=== PATIENT | male | born 1930 | race Caucasian/White ===

== ENCOUNTER 2018-02-22 14:10 | Inpatient (IN) | payer BC, OTHER ==
[2018-02-22 14:54] LABS: WHITE BLOOD COUNT 21.2 10^3/ul (4.8-10.8)
[2018-02-22 14:55] LABS: ABNORMAL IP MESSAGE 1; HEMATOCRIT 44.2 % (42.0-52.0); HEMOGLOBIN 14.7 g/dl (14.0-18.0); MEAN CORPUSCULAR HEMOGLOBIN 33.3 pg (29.0-33.0); MEAN CORPUSCULAR HGB CONC 33.3 g/dl (32.0-37.0); POSITIVE DIFF @See below; RED BLOOD COUNT 4.42 10^6/ul (4.70-6.10); RED CELL DISTRIBUTION WIDTH 13.3 % (11.5-14.5)
[2018-02-22 14:56] LABS: MEAN PLATELET VOLUME 11.2 fl (7.4-10.4); PLATELET COUNT 47 10^3/UL (140-415)
[2018-02-22 14:57] LABS: ADD MAN DIFF? YES
[2018-02-22] MEDS: SOD CHLORIDE 0.9% 1,000 ML IV ×2 (14:58→21:00)
[2018-02-22] MEDS: PANTOPRAZOLE IV 80 MG in SOD CHLORIDE 0.9% 100 ML IV (14:58)
[2018-02-22] MEDS: PANTOPRAZOLE IV 80 MG in SOD CHLORIDE 0.9% 100 ML IVPB (14:58)
[2018-02-22 15:11] LABS: ALANINE AMINOTRANSFERASE 16 IU/L (13-69); ALBUMIN 2.9 g/dl (3.3-4.9); ALBUMIN/GLOBULIN RATIO 1.26; ALKALINE PHOSPHATASE 36 IU/L (42-121); ANION GAP 14 (5-13); ASPARTATE AMINO TRANSFERASE 25 IU/L (15-46); BILIRUBIN,INDIRECT 1.4 mg/dl (0-1.1); BILIRUBIN,TOTAL 1.4 mg/dl (0.2-1.3); BLOOD UREA NITROGEN 17 mg/dl (7-20); CALCIUM 7.7 mg/dl (8.4-10.2); CARBON DIOXIDE 20 mmol/L (21-31); CHLORIDE 101 mmol/L (97-110); CREATININE 0.87 mg/dl (0.61-1.24); GLUCOSE 140 mg/dl (70-220); LIPASE 36 U/L (23-300); POTASSIUM 3.8 mmol/L (3.5-5.1); SODIUM 135 mmol/L (135-144); TOTAL PROTEIN 5.2 g/dl (6.1-8.1)
[2018-02-22 15:13] LABS: INR 1.15; PARTIAL THROMBOPLASTIN TIME 25.2 Sec (23.0-35.0); PROTIME 14.9 Sec (11.9-14.9); PT RATIO 1.2
[2018-02-22 15:23] LABS: TROPONIN-I < 0.012 ng/ml (0.000-0.120)
[2018-02-22 15:29] LABS: BAND NEUTROPHILS #M 4.6 10^3/ul (0.0-0.6); BAND NEUTROPHILS % (M) 22 % (0-4); LYMPHOCYTES #M 0.8 10^3/ul (0.8-2.9); LYMPHOCYTES % (M) 4 % (15-51); MONOCYTE #M 1.2 10^3/ul (0.3-0.9); MONOCYTES % (M) 6 % (0-11); MYELOCYTES #M 0.2 10^3/ul (0.0-0.0); MYELOCYTES % (M) 1 % (0-0); PLATELET ESTIMATE DECREASED; SEG NEUT #M 15.2 10^3/ul (1.6-7.5); SEGMENTED NEUTROPHILS (M) % 67 % (39-77); SMUDGE%M 51 % (0-0)
[2018-02-22] MEDS: SODIUM CHLORIDE 0.9% 1L BAG IV* (16:41)
[2018-02-22] MEDS: CEFEPIME 2GM/50 ML (PMX) 50 ML IVPB (16:42)
[2018-02-22] MEDS: VANCOMYCIN 1 GM (PMX) 250 ML IVPB (17:06)
[2018-02-22] MEDS ORDERED: ACETAMINOPHEN 325 MG TAB PO (18:00)
[2018-02-22] MEDS ORDERED: ONDANSETRON 4 MG INJ IV ×2 (18:00→20:00)
[2018-02-22] MEDS ORDERED: NACL 0.9% 3 ML SYG IV (20:00)
[2018-02-22] MEDS ORDERED: morphine 2 MG INJ IV (20:00)
[2018-02-22] MEDS ORDERED: VANCOMYCIN IV PER PHARMACY XX (21:00)
[2018-02-22] MEDS: MEROPENEM 500MG/50 ML (PMX) 50 ML IVPB (22:52)
[2018-02-22] MEDS: D5W-0.45 NACL + KCL 20 MEQ 1,000 ML IV (23:24)
[2018-02-23] MEDS: D5W-0.45 NACL + KCL 20 MEQ 1,000 ML IV ×2 (05:52→17:28)
[2018-02-23 06:53] LABS: WHITE BLOOD COUNT 28.1 10^3/ul (4.8-10.8)
[2018-02-23 06:53] LABS: ABNORMAL IP MESSAGE 1; HEMATOCRIT 35.7 % (42.0-52.0); MEAN CORPUSCULAR HEMOGLOBIN 33.6 pg (29.0-33.0); MEAN CORPUSCULAR HGB CONC 33.6 g/dl (32.0-37.0); MEAN PLATELET VOLUME 11.4 fl (7.4-10.4); POSITIVE DIFF @See below; RED BLOOD COUNT 3.57 10^6/ul (4.70-6.10); RED CELL DISTRIBUTION WIDTH 13.6 % (11.5-14.5)
[2018-02-23 07:04] LABS: PLATELET COUNT 28 10^3/UL (140-415)
[2018-02-23 07:05] LABS: ADD MAN DIFF? YES
[2018-02-23 07:12] LABS: ALANINE AMINOTRANSFERASE 17 IU/L (13-69); ALBUMIN 2.6 g/dl (3.3-4.9); ALBUMIN/GLOBULIN RATIO 1.13; ALKALINE PHOSPHATASE 31 IU/L (42-121); ANION GAP 7 (5-13); ASPARTATE AMINO TRANSFERASE 23 IU/L (15-46); BLOOD UREA NITROGEN 18 mg/dl (7-20); CALCIUM 7.4 mg/dl (8.4-10.2); CARBON DIOXIDE 22 mmol/L (21-31); CHLORIDE 107 mmol/L (97-110); CREATININE 0.83 mg/dl (0.61-1.24); GLUCOSE 127 mg/dl (70-220); POTASSIUM 3.8 mmol/L (3.5-5.1); SODIUM 136 mmol/L (135-144); TOTAL PROTEIN 4.9 g/dl (6.1-8.1)
[2018-02-23 08:20] LABS: BAND NEUTROPHILS #M 4.2 10^3/ul (0.0-0.6); BAND NEUTROPHILS % (M) 15 % (0-4); LYMPHOCYTES #M 1.4 10^3/ul (0.8-2.9); LYMPHOCYTES % (M) 5 % (15-51); METAMYELOCYTES #M 0.5 10^3/ul (0.0-0.0); METAMYELOCYTES %M 2 % (0-0); MONOCYTE #M 2.5 10^3/ul (0.3-0.9); MONOCYTES % (M) 9 % (0-11); PLATELET ESTIMATE SIG DECREASED; POIKILOCYTOSIS 2+ (0-0); POLYCHROMASIA 1+ (0-0); REACTIVE LYMPHOCYTES #M 0.5 10^3/ul (0.0-0.0); REACTIVE LYMPHOCYTES% (M) 2 % (0-0); SEGMENTED NEUTROPHILS (M) % 67 % (39-77); SMUDGE%M 36 % (0-0); SPHEROCYTES 1+ (0-0)
[2018-02-23] MEDS: SOD CHLORIDE 0.9% 100 ML (17:16)
[2018-02-23] MEDS: IOHEXOL 300MG/ML 30 ML BTL (17:16)
[2018-02-23] MEDS: PANTOPRAZOLE 40 MG INJ IV (17:26)
[2018-02-23] MEDS: VANCOMYCIN 1 GM 250 ML IVPB (17:27)
[2018-02-23] MEDS: MEROPENEM 1 GM/50ML(PMX) 50 ML IVPB (20:48)
[2018-02-24] MEDS: D5W-0.45 NACL + KCL 20 MEQ 1,000 ML IV ×3 (05:28→23:48)
[2018-02-24] MEDS: PANTOPRAZOLE 40 MG INJ IV (05:28)
[2018-02-24 05:31] LABS: WHITE BLOOD COUNT 31.6 10^3/ul (4.8-10.8)
[2018-02-24 05:31] LABS: ABNORMAL IP MESSAGE 1; HEMATOCRIT 34.1 % (42.0-52.0); HEMOGLOBIN 11.5 g/dl (14.0-18.0); MEAN CORPUSCULAR HGB CONC 33.7 g/dl (32.0-37.0); MEAN CORPUSCULAR VOLUME 100.9 fl (82.0-101.0); PLATELET COUNT 63 10^3/UL (140-415); POSITIVE DIFF @See below; RED BLOOD COUNT 3.38 10^6/ul (4.70-6.10); RED CELL DISTRIBUTION WIDTH 13.5 % (11.5-14.5)
[2018-02-24 05:42] LABS: ADD MAN DIFF? YES
[2018-02-24 06:13] LABS: ANION GAP 11 (5-13); BLOOD UREA NITROGEN 16 mg/dl (7-20); CALCIUM 8.5 mg/dl (8.4-10.2); CARBON DIOXIDE 23 mmol/L (21-31); CHLORIDE 105 mmol/L (97-110); CREATININE 0.74 mg/dl (0.61-1.24); GLUCOSE 131 mg/dl (70-220); POTASSIUM 3.5 mmol/L (3.5-5.1); SODIUM 139 mmol/L (135-144)
[2018-02-24 06:34] LABS: CARCINOEMBRYONIC ANTIGEN 3.5 ng/ml (0.0-5.0)
[2018-02-24] MEDS ORDERED: NA BICARBONATE 8.4% 50 ML SYG (07:00)
[2018-02-24 07:22] LABS: BAND NEUTROPHILS #M 4.7 10^3/ul (0.0-0.6); BAND NEUTROPHILS % (M) 15 % (0-4); LYMPHOCYTES #M 0.3 10^3/ul (0.8-2.9); LYMPHOCYTES % (M) 1 % (15-51); MONOCYTE #M 2.2 10^3/ul (0.3-0.9); MONOCYTES % (M) 7 % (0-11); PLATELET ESTIMATE SIG DECREASED; REACTIVE LYMPHOCYTES #M 0.3 10^3/ul (0.0-0.0); REACTIVE LYMPHOCYTES% (M) 1 % (0-0); SEG NEUT #M 25.5 10^3/ul (1.6-7.5); SEGMENTED NEUTROPHILS (M) % 76 % (39-77); SMUDGE%M 2 % (0-0); SPHEROCYTES 1+ (0-0)
[2018-02-24] MEDS: CIPROFLOXACIN 400MG/D5W 200 ML (08:33)
[2018-02-24] MEDS ORDERED: MIDAZOLAM 1 MG/ML 2 ML INJ (08:36)
[2018-02-24] MEDS ORDERED: PHENYLephrine (100 MCG/ML) 5ML SYG ×3 (08:46→10:17)
[2018-02-24] MEDS ORDERED: PHENYLephrine 10 MG INJ ×2 (08:53→10:17)
[2018-02-24] MEDS ORDERED: GELATIN SIZE 100 SPONGE (11:03)
[2018-02-24 11:30] LABS: TYPE AND SCREEN 1
[2018-02-24] MEDS: HEMOSTATIC MATRIX SYG ZFS (11:30)
[2018-02-24 11:52] LABS: ADD MAN DIFF? NO
[2018-02-24] MEDS ORDERED: SOD CHLORIDE 0.9% 1,000 ML IV (11:55)
[2018-02-24 12:00] LABS: WHITE BLOOD COUNT 17.7 10^3/ul (4.8-10.8)
[2018-02-24 12:00] LABS: ABNORMAL IP MESSAGE 1; BASOPHILS % 0.1 % (0.0-2.0); HEMATOCRIT 31.2 % (42.0-52.0); HEMOGLOBIN 10.6 g/dl (14.0-18.0); LYMPHOCYTES # 0.7 10^3/ul (0.8-2.9); LYMPHOCYTES % 3.9 % (15.0-51.0); MEAN CORPUSCULAR HEMOGLOBIN 31.9 pg (29.0-33.0); MEAN PLATELET VOLUME 9.8 fl (7.4-10.4); MONOCYTE # 2.5 10^3/ul (0.3-0.9); MONOCYTES % 14.3 % (0.0-11.0); NEUTROPHIL # 14.2 10^3/ul (1.6-7.5); NEUTROPHILS % 80.1 % (39.0-77.0); PLATELET COUNT 73 10^3/UL (140-415); POSITIVE DIFF @See below; RED BLOOD COUNT 3.32 10^6/ul (4.70-6.10); RED CELL DISTRIBUTION WIDTH 15.2 % (11.5-14.5)
[2018-02-24] MEDS ORDERED: metroNIDAZOLE 500 MG/NS (PMX) 100 ML IVPB ×2 (12:00→12:12)
[2018-02-24] MEDS ORDERED: CIPROFLOXACIN 400MG/D5W 200 ML IVPB (12:00)
[2018-02-24] MEDS ORDERED: ONDANSETRON 4 MG INJ IV ×2 (12:00→12:30)
[2018-02-24 12:12] LABS: ALANINE AMINOTRANSFERASE 35 IU/L (13-69); ALBUMIN 1.7 g/dl (3.3-4.9); ALKALINE PHOSPHATASE 31 IU/L (42-121); ANION GAP 5 (5-13); ASPARTATE AMINO TRANSFERASE 33 IU/L (15-46); BILIRUBIN,INDIRECT 0.5 mg/dl (0-1.1); BILIRUBIN,TOTAL 0.5 mg/dl (0.2-1.3); BLOOD UREA NITROGEN 14 mg/dl (7-20); CALCIUM 6.6 mg/dl (8.4-10.2); CARBON DIOXIDE 25 mmol/L (21-31); CHLORIDE 109 mmol/L (97-110); CREATININE 0.53 mg/dl (0.61-1.24); GLUCOSE 184 mg/dl (70-220); POTASSIUM 3.1 mmol/L (3.5-5.1); SODIUM 139 mmol/L (135-144)
[2018-02-24] MEDS ORDERED: LIDOCAINE 2% (SDV) 5 ML INJ (12:12)
[2018-02-24] MEDS ORDERED: ROCURONIUM 50 MG INJ (12:12)
[2018-02-24] MEDS ORDERED: ETOMIDATE 20 MG INJ (12:12)
[2018-02-24 12:16] LABS: INR 1.75; PROTIME 20.8 Sec (11.9-14.9); PT RATIO 1.6
[2018-02-24] MEDS ORDERED: LORAZEPAM 2 MG INJ IV (12:30)
[2018-02-24] MEDS ORDERED: morphine (1 MG/ML) 10ML SYRINGE IV ×2 (12:30)
[2018-02-24] MEDS ORDERED: DIPHENHYDRAMINE 50 MG INJ IV (12:30)
[2018-02-24] MEDS ORDERED: MIDAZOLAM 1 MG/ML 2 ML INJ IV (12:30)
[2018-02-24] MEDS ORDERED: MEPERIDINE 25 MG INJ IV (12:30)
[2018-02-24] MEDS: MEROPENEM 1 GM/50ML(PMX) 50 ML IVPB ×2 (15:20→22:06)
[2018-02-24] MEDS: PROPOFOL 100 ML IV (15:28)
[2018-02-24] MEDS: VANCOMYCIN 1 GM 250 ML IVPB (16:30)
[2018-02-24] MEDS: morphine 2 MG INJ IV (17:40)
[2018-02-24 19:11] LABS: HEMATOCRIT 31.7 % (42.0-52.0); HEMOGLOBIN 11.1 g/dl (14.0-18.0)
[2018-02-24] MEDS: SOD CHLORIDE 0.9% 1,000 ML IV ×2 (19:14→20:15)
[2018-02-24 22:22] LABS: ANION GAP 9 (5-13); BLOOD UREA NITROGEN 15 mg/dl (7-20); CALCIUM 6.9 mg/dl (8.4-10.2); CARBON DIOXIDE 18 mmol/L (21-31); CHLORIDE 113 mmol/L (97-110); CREATININE 0.78 mg/dl (0.61-1.24); GLUCOSE 102 mg/dl (70-220); POTASSIUM 3.3 mmol/L (3.5-5.1); SODIUM 140 mmol/L (135-144)
[2018-02-24 23:04] LABS: AADO2 Arterial 142.1 mmHg (7.0-24.0); Arterial Base Excess 0.7 mmol/L (-3.0-3); Arterial Blood Gas Oxygen Sat 97.3 mmHG (95.0-100.0); Arterial COHb 1.1 % (0.0-3.0); Arterial Fraction of Oxyhgb 95.9 % (93.0-99.0); Arterial HCO3 20.6 mmol/L (22.0-26.0); Arterial MetHb 0.3 % (0.0-1.5); Arterial Total Hemglobin 12.3 g/dl (12.0-18.0); Arterial pCO2 21.6 mmhg (35-45); MODE VENT - AC; Site A-Line
[2018-02-24 23:10] LABS: IMMEDIATE SPIN CROSSMATCH 1 7
[2018-02-24] MEDS: POTASSIUM CHLORIDE 100 ML IVPB (23:59)
[2018-02-25] MEDS ORDERED: LORAZEPAM 2 MG INJ IM
[2018-02-25] MEDS: NORepinephrine 8MG/250 ML (PMX 250 ML IV (00:01)
[2018-02-25] MEDS: FENTAnyl (DRIP) 1000 mcg/100mL 100 ML IV (00:07)
[2018-02-25] MEDS: ACETAMINOPHEN 650MG/20.3ML CUP NGT (00:30)
[2018-02-25 01:26] LABS: ADD UMIC YES; UR ASCORBIC ACID NEGATIVE (NEGATIVE); UR BACTERIA FEW /HPF (NONE SEEN); UR BILIRUBIN (Dip) NEGATIVE (NEGATIVE); UR BLOOD (Dip) 2+ mg/dL (NEGATIVE); UR CLARITY CLOUDY (CLEAR); UR COLOR AMBER (YELLOW); UR GLUCOSE (Dip) 1+ mg/dL (NEGATIVE); UR KETONES (Dip) TRACE mg/dL (NEGATIVE); UR LEUKOCYTE ESTERASE (Dip) NEGATIVE Leu/ul (NEGATIVE); UR MUCUS FEW /HPF (NONE SEEN); UR NITRITE (Dip) NEGATIVE (NEGATIVE); UR RBC 20 /HPF (0-5); UR SPECIFIC GRAVITY (Dip) 1.024 (1.003-1.030); UR TOTAL PROTEIN (Dip) 1+ mg/dl (NEGATIVE); UR UROBILINOGEN (Dip) 2+ mg/dL (NEGATIVE); UR WBC 16 /HPF (0-5)
[2018-02-25 01:53] LABS: ADD MAN DIFF? NO
[2018-02-25 01:58] LABS: WHITE BLOOD COUNT 13.9 10^3/ul (4.8-10.8)
[2018-02-25 01:58] LABS: ABNORMAL IP MESSAGE 1; BASOPHILS % 0.1 % (0.0-2.0); HEMATOCRIT 34.6 % (42.0-52.0); LYMPHOCYTES # 0.9 10^3/ul (0.8-2.9); LYMPHOCYTES % 6.3 % (15.0-51.0); MEAN CORPUSCULAR HEMOGLOBIN 31.5 pg (29.0-33.0); MEAN CORPUSCULAR HGB CONC 34.7 g/dl (32.0-37.0); MEAN CORPUSCULAR VOLUME 90.8 fl (82.0-101.0); MEAN PLATELET VOLUME 10.6 fl (7.4-10.4); MONOCYTE # 1.9 10^3/ul (0.3-0.9); MONOCYTES % 13.3 % (0.0-11.0); NEUTROPHILS % 79.4 % (39.0-77.0); PLATELET COUNT 60 10^3/UL (140-415); POSITIVE DIFF @See below; RED BLOOD COUNT 3.81 10^6/ul (4.70-6.10); RED CELL DISTRIBUTION WIDTH 15.9 % (11.5-14.5)
[2018-02-25] MEDS: LEVETIRACETAM 1000 MG (PMX) 100 ML IVPB (02:36)
[2018-02-25] MEDS: PROPOFOL 100 ML IV ×2 (03:00→16:46)
[2018-02-25] MEDS: POTASSIUM CHLORIDE 100 ML IVPB (03:14)
[2018-02-25 04:15] LABS: PRETRANSFUSION BILIRUBIN 1.2 mg/dl
[2018-02-25 04:15] LABS: POST-TRANSFUSION BILIRUBIN 1.2 mg/dl
[2018-02-25 05:08] LABS: ADD MAN DIFF? NO
[2018-02-25 05:10] LABS: WHITE BLOOD COUNT 15.9 10^3/ul (4.8-10.8)
[2018-02-25 05:10] LABS: ABNORMAL IP MESSAGE 1; BASOPHILS % 0.2 % (0.0-2.0); HEMATOCRIT 34.8 % (42.0-52.0); HEMOGLOBIN 12.1 g/dl (14.0-18.0); LYMPHOCYTES # 1.1 10^3/ul (0.8-2.9); LYMPHOCYTES % 6.6 % (15.0-51.0); MEAN CORPUSCULAR HEMOGLOBIN 31.5 pg (29.0-33.0); MEAN CORPUSCULAR HGB CONC 34.8 g/dl (32.0-37.0); MEAN CORPUSCULAR VOLUME 90.6 fl (82.0-101.0); MEAN PLATELET VOLUME 9.9 fl (7.4-10.4); MONOCYTE # 2.1 10^3/ul (0.3-0.9); MONOCYTES % 13.3 % (0.0-11.0); NEUTROPHIL # 12.6 10^3/ul (1.6-7.5); NEUTROPHILS % 78.8 % (39.0-77.0); NUCLEATED RED BLOOD CELLS% 0.1 /100WBC (0.0-0.0); PLATELET COUNT 49 10^3/UL (140-415); POSITIVE DIFF @See below; RED BLOOD COUNT 3.84 10^6/ul (4.70-6.10)
[2018-02-25 05:34] LABS: INR 1.55; PROTIME 18.9 Sec (11.9-14.9); PT RATIO 1.5
[2018-02-25 05:52] LABS: ALANINE AMINOTRANSFERASE 30 IU/L (13-69); ALBUMIN 1.8 g/dl (3.3-4.9); ALKALINE PHOSPHATASE 32 IU/L (42-121); ANION GAP 6 (5-13); ASPARTATE AMINO TRANSFERASE 41 IU/L (15-46); BILIRUBIN,INDIRECT 1.3 mg/dl (0-1.1); BILIRUBIN,TOTAL 1.3 mg/dl (0.2-1.3); BLOOD UREA NITROGEN 16 mg/dl (7-20); CALCIUM 6.8 mg/dl (8.4-10.2); CARBON DIOXIDE 19 mmol/L (21-31); CHLORIDE 115 mmol/L (97-110); CREATININE 0.86 mg/dl (0.61-1.24); GLUCOSE 120 mg/dl (70-220); POTASSIUM 4.1 mmol/L (3.5-5.1); SODIUM 140 mmol/L (135-144); TOTAL PROTEIN 3.6 g/dl (6.1-8.1)
[2018-02-25] MEDS: D5W-0.45 NACL + KCL 20 MEQ 1,000 ML IV ×2 (07:41→20:51)
[2018-02-25 09:19] LABS: AADO2 Arterial 135.2 mmHg (7.0-24.0); Arterial Blood Gas Oxygen Sat 96.7 mmHG (95.0-100.0); Arterial COHb 0.6 % (0.0-3.0); Arterial Fraction of Oxyhgb 95.9 % (93.0-99.0); Arterial HCO3 19.7 mmol/L (22.0-26.0); Arterial MetHb 0.2 % (0.0-1.5); Arterial Total Hemglobin 12.7 g/dl (12.0-18.0); Arterial pCO2 25.7 mmhg (35-45); MODE VENT - AC; Site A-Line
[2018-02-25] MEDS: FAMOTIDINE 20 MG INJ IV (09:38)
[2018-02-25] MEDS: MEROPENEM 1 GM/50ML(PMX) 50 ML IVPB (09:38)
[2018-02-25] MEDS: LEVETIRACETAM 500 MG (PMX) 100 ML IVPB ×2 (12:44→22:31)
[2018-02-25] MEDS: ALBUMIN HUMAN 25% 50 ML IV ×2 (13:09→18:39)
[2018-02-25] MEDS: PIPER-TAZO 3.375 GM IV (PMX) 100 ML IVPB ×2 (14:38→21:46)
[2018-02-25 15:32] LABS: VANCOMYCIN,TROUGH 7.4 ug/ml (10.0-20.0)
[2018-02-25] MEDS: VANCOMYCIN 1 GM 250 ML IVPB (15:40)
[2018-02-25] MEDS: LORAZEPAM 2 MG INJ IV ×2 (18:39→22:31)
[2018-02-25 20:41] LABS: WHITE BLOOD COUNT 15.2 10^3/ul (4.8-10.8)
[2018-02-25 20:41] LABS: ABNORMAL IP MESSAGE 1; HEMATOCRIT 28.7 % (42.0-52.0); HEMOGLOBIN 9.9 g/dl (14.0-18.0); MEAN CORPUSCULAR HEMOGLOBIN 31.9 pg (29.0-33.0); MEAN CORPUSCULAR HGB CONC 34.5 g/dl (32.0-37.0); MEAN CORPUSCULAR VOLUME 92.6 fl (82.0-101.0); MEAN PLATELET VOLUME 11.7 fl (7.4-10.4); PLATELET COUNT 32 10^3/UL (140-415); POSITIVE DIFF @See below; RED CELL DISTRIBUTION WIDTH 16.4 % (11.5-14.5)
[2018-02-25 20:50] LABS: ADD MAN DIFF? YES
[2018-02-25 23:04] LABS: BAND NEUTROPHILS #M 2.4 10^3/ul (0.0-0.6); BAND NEUTROPHILS % (M) 16 % (0-4); GIANT THROMBO% (M) 4 % (0-0); LYMPHOCYTES #M 0.6 10^3/ul (0.8-2.9); LYMPHOCYTES % (M) 4 % (15-51); METAMYELOCYTES #M 0.1 10^3/ul (0.0-0.0); METAMYELOCYTES %M 1 % (0-0); MONOCYTE #M 0.7 10^3/ul (0.3-0.9); MONOCYTES % (M) 5 % (0-11); PLATELET ESTIMATE SIG DECREASED; SEG NEUT #M 11.6 10^3/ul (1.6-7.5); SEGMENTED NEUTROPHILS (M) % 74 % (39-77); SMUDGE%M 79 % (0-0)
[2018-02-25 23:26] LABS: MAGNESIUM 1.7 mg/dl (1.7-2.5)
[2018-02-25 23:36] LABS: ANION GAP 7 (5-13); BLOOD UREA NITROGEN 12 mg/dl (7-20); CALCIUM 6.9 mg/dl (8.4-10.2); CARBON DIOXIDE 22 mmol/L (21-31); CHLORIDE 113 mmol/L (97-110); CREATININE 0.85 mg/dl (0.61-1.24); GLUCOSE 111 mg/dl (70-220); POTASSIUM 3.5 mmol/L (3.5-5.1); SODIUM 142 mmol/L (135-144)
[2018-02-26] MEDS: PROPOFOL 100 ML IV ×2 (02:54→07:18)
[2018-02-26] MEDS: MAGNESIUM SULFATE 2 GM/50 ML 50 ML IVPB (02:55)
[2018-02-26] MEDS: ALBUMIN HUMAN 25% 50 ML IV (03:37)
[2018-02-26] MEDS: VANCOMYCIN 750 MG in SOD CHLORIDE 0.9% 150 ML IVPB ×2 (04:23→16:58)
[2018-02-26] MEDS: D5W-0.45 NACL + KCL 20 MEQ 1,000 ML IV ×2 (05:13→10:35)
[2018-02-26 05:14] LABS: Arterial Blood Gas Oxygen Sat 93.7 mmHG (95.0-100.0); Arterial COHb 0.8 % (0.0-3.0); Arterial Fraction of Oxyhgb 92.8 % (93.0-99.0); Arterial HCO3 22.3 mmol/L (22.0-26.0); Arterial MetHb 0.2 % (0.0-1.5); Arterial Total Hemglobin 11.2 g/dl (12.0-18.0); Arterial pCO2 32.1 mmhg (35-45); MODE VENT - AC; Site A-Line
[2018-02-26] MEDS: LORAZEPAM 2 MG INJ IV ×4 (05:17→23:42)
[2018-02-26] MEDS: PIPER-TAZO 3.375 GM IV (PMX) 100 ML IVPB ×3 (05:17→22:32)
[2018-02-26] MEDS: FENTAnyl (DRIP) 1000 mcg/100mL 100 ML IV (05:25)
[2018-02-26 06:16] LABS: ADD MAN DIFF? NO
[2018-02-26 06:20] LABS: ABNORMAL IP MESSAGE 1; BASOPHILS % 0.1 % (0.0-2.0); HEMATOCRIT 28.3 % (42.0-52.0); HEMOGLOBIN 9.8 g/dl (14.0-18.0); LYMPHOCYTES # 0.9 10^3/ul (0.8-2.9); MEAN CORPUSCULAR HEMOGLOBIN 32.3 pg (29.0-33.0); MEAN CORPUSCULAR HGB CONC 34.6 g/dl (32.0-37.0); MEAN CORPUSCULAR VOLUME 93.4 fl (82.0-101.0); MEAN PLATELET VOLUME 10.9 fl (7.4-10.4); MONOCYTE # 1.4 10^3/ul (0.3-0.9); MONOCYTES % 9.3 % (0.0-11.0); NEUTROPHIL # 12.4 10^3/ul (1.6-7.5); NEUTROPHILS % 82.8 % (39.0-77.0); POSITIVE DIFF @See below; RED BLOOD COUNT 3.03 10^6/ul (4.70-6.10); RED CELL DISTRIBUTION WIDTH 16.3 % (11.5-14.5)
[2018-02-26 06:22] LABS: PLATELET COUNT 22 10^3/UL (140-415)
[2018-02-26 06:52] LABS: ALANINE AMINOTRANSFERASE 24 IU/L (13-69); ALBUMIN 2.3 g/dl (3.3-4.9); ALBUMIN/GLOBULIN RATIO 1.15; ALKALINE PHOSPHATASE 40 IU/L (42-121); ANION GAP 4 (5-13); ASPARTATE AMINO TRANSFERASE 38 IU/L (15-46); BILIRUBIN,INDIRECT 1.2 mg/dl (0-1.1); BILIRUBIN,TOTAL 1.4 mg/dl (0.2-1.3); BLOOD UREA NITROGEN 11 mg/dl (7-20); CALCIUM 7.1 mg/dl (8.4-10.2); CARBON DIOXIDE 22 mmol/L (21-31); CHLORIDE 115 mmol/L (97-110); CREATININE 0.76 mg/dl (0.61-1.24); GLUCOSE 103 mg/dl (70-220); POTASSIUM 3.4 mmol/L (3.5-5.1); SODIUM 141 mmol/L (135-144); TOTAL PROTEIN 4.3 g/dl (6.1-8.1)
[2018-02-26 07:11] LABS: MAGNESIUM 2.2 mg/dl (1.7-2.5)
[2018-02-26 07:11] LABS: PHOSPHORUS 1.2 mg/dl (2.5-4.9)
[2018-02-26] MEDS: FAMOTIDINE 20 MG INJ IV (08:14)
[2018-02-26] MEDS: LEVETIRACETAM 500 MG (PMX) 100 ML IVPB ×2 (08:15→20:33)
[2018-02-26] MEDS: MULTIVITAMINS 10 ML, THIAMINE 100 MG, FOLIC ACID 1 MG in SOD CHLORIDE 0.9% 1,000 ML IVPB (09:30)
[2018-02-26 14:24] LABS: TYPE AND SCREEN 1 1
[2018-02-26 17:28] LABS: ADD MAN DIFF? NO
[2018-02-26 17:33] LABS: ABNORMAL IP MESSAGE 1; BASOPHILS % 0.1 % (0.0-2.0); EOSINOPHILS % 0.1 % (0.0-7.0); HEMOGLOBIN 9.4 g/dl (14.0-18.0); LYMPHOCYTES % 5.4 % (15.0-51.0); MEAN CORPUSCULAR HEMOGLOBIN 31.4 pg (29.0-33.0); MEAN CORPUSCULAR HGB CONC 33.6 g/dl (32.0-37.0); MEAN CORPUSCULAR VOLUME 93.6 fl (82.0-101.0); MEAN PLATELET VOLUME 9.9 fl (7.4-10.4); MONOCYTE # 1.6 10^3/ul (0.3-0.9); MONOCYTES % 8.4 % (0.0-11.0); NEUTROPHIL # 16.2 10^3/ul (1.6-7.5); NEUTROPHILS % 84.1 % (39.0-77.0); PLATELET COUNT 53 10^3/UL (140-415); POSITIVE DIFF @See below; RED BLOOD COUNT 2.99 10^6/ul (4.70-6.10)
[2018-02-26 17:33] LABS: WHITE BLOOD COUNT 19.2 10^3/ul (4.8-10.8)
[2018-02-26] MEDS: POTASSIUM PHOSPHATE 15 MM in SOD CHLORIDE 0.9% 250 ML IVPB (19:57)
[2018-02-27] MEDS: D5W-0.45 NACL + KCL 20 MEQ 1,000 ML IV ×3 (02:00→20:52)
[2018-02-27] MEDS: FENTAnyl (DRIP) 1000 mcg/100mL 100 ML IV (02:53)
[2018-02-27] MEDS: PROPOFOL 100 ML IV ×2 (03:00→15:00)
[2018-02-27] MEDS: VANCOMYCIN 750 MG in SOD CHLORIDE 0.9% 150 ML IVPB ×2 (04:00→18:27)
[2018-02-27] MEDS: PIPER-TAZO 3.375 GM IV (PMX) 100 ML IVPB ×3 (05:42→22:37)
[2018-02-27] MEDS: LORAZEPAM 2 MG INJ IV ×4 (06:04→23:30)
[2018-02-27 06:15] LABS: ADD MAN DIFF? NO
[2018-02-27 06:25] LABS: ABNORMAL IP MESSAGE 1; BASOPHIL # 0.1 10^3/ul (0.0-0.1); BASOPHILS % 0.2 % (0.0-2.0); HEMATOCRIT 29.3 % (42.0-52.0); HEMOGLOBIN 9.7 g/dl (14.0-18.0); LYMPHOCYTES # 1.5 10^3/ul (0.8-2.9); LYMPHOCYTES % 6.9 % (15.0-51.0); MEAN CORPUSCULAR HEMOGLOBIN 31.6 pg (29.0-33.0); MEAN CORPUSCULAR HGB CONC 33.1 g/dl (32.0-37.0); MEAN CORPUSCULAR VOLUME 95.4 fl (82.0-101.0); MEAN PLATELET VOLUME 10.7 fl (7.4-10.4); MONOCYTE # 1.8 10^3/ul (0.3-0.9); MONOCYTES % 8.5 % (0.0-11.0); NEUTROPHIL # 17.5 10^3/ul (1.6-7.5); PLATELET COUNT 50 10^3/UL (140-415); POSITIVE DIFF @See below; RED BLOOD COUNT 3.07 10^6/ul (4.70-6.10); RED CELL DISTRIBUTION WIDTH 16.1 % (11.5-14.5)
[2018-02-27 06:25] LABS: WHITE BLOOD COUNT 21.3 10^3/ul (4.8-10.8)
[2018-02-27 06:53] LABS: ANION GAP 6 (5-13); BLOOD UREA NITROGEN 9 mg/dl (7-20); CALCIUM 7.2 mg/dl (8.4-10.2); CARBON DIOXIDE 22 mmol/L (21-31); CHLORIDE 116 mmol/L (97-110); CREATININE 0.77 mg/dl (0.61-1.24); GLUCOSE 99 mg/dl (70-220); POTASSIUM 3.4 mmol/L (3.5-5.1); SODIUM 144 mmol/L (135-144)
[2018-02-27] MEDS: FAMOTIDINE 20 MG INJ IV (09:27)
[2018-02-27] MEDS: MULTIVITAMINS 10 ML, THIAMINE 100 MG, FOLIC ACID 1 MG in SOD CHLORIDE 0.9% 1,000 ML IVPB (09:27)
[2018-02-27] MEDS: LEVETIRACETAM 500 MG (PMX) 100 ML IVPB ×2 (12:48→20:53)
[2018-02-27] MEDS ORDERED: morphine 2 MG INJ IV (14:30)
[2018-02-27 15:23] LABS: VANCOMYCIN,TROUGH 13.6 ug/ml (10.0-20.0)
[2018-02-27 16:44] LABS: AADO2 Arterial 138.7 mmHg (7.0-24.0); Allen Test ACCEPTAB; Arterial Base Excess -4.3 mmol/L (-3.0-3); Arterial Blood Gas Oxygen Sat 95.2 mmHG (95.0-100.0); Arterial COHb 1.5 % (0.0-3.0); Arterial Fraction of Oxyhgb 93.6 % (93.0-99.0); Arterial HCO3 19.3 mmol/L (22.0-26.0); Arterial MetHb 0.2 % (0.0-1.5); Arterial Total Hemglobin 13.1 g/dl (12.0-18.0); Arterial pCO2 31.5 mmhg (35-45); Blood Gas PS 10; MODE VENT - CPAP; Site Right Radial
[2018-02-28] MEDS: PROPOFOL 100 ML IV ×2 (03:00→15:00)
[2018-02-28] MEDS: VANCOMYCIN 750 MG in SOD CHLORIDE 0.9% 150 ML IVPB ×2 (04:58→15:18)
[2018-02-28] MEDS: LORAZEPAM 2 MG INJ IV (05:02)
[2018-02-28 05:43] LABS: ADD MAN DIFF? NO
[2018-02-28 05:52] LABS: WHITE BLOOD COUNT 28.1 10^3/ul (4.8-10.8)
[2018-02-28 05:52] LABS: ABNORMAL IP MESSAGE 1; BASOPHIL # 0.1 10^3/ul (0.0-0.1); BASOPHILS % 0.3 % (0.0-2.0); EOSINOPHILS % 0.1 % (0.0-7.0); HEMATOCRIT 29.4 % (42.0-52.0); HEMOGLOBIN 9.6 g/dl (14.0-18.0); LYMPHOCYTES # 1.3 10^3/ul (0.8-2.9); LYMPHOCYTES % 4.8 % (15.0-51.0); MEAN CORPUSCULAR HEMOGLOBIN 31.6 pg (29.0-33.0); MEAN CORPUSCULAR HGB CONC 32.7 g/dl (32.0-37.0); MEAN CORPUSCULAR VOLUME 96.7 fl (82.0-101.0); MEAN PLATELET VOLUME 11.7 fl (7.4-10.4); MONOCYTE # 2.2 10^3/ul (0.3-0.9); MONOCYTES % 7.8 % (0.0-11.0); NEUTROPHIL # 23.2 10^3/ul (1.6-7.5); NEUTROPHILS % 82.6 % (39.0-77.0); NUCLEATED RED BLOOD CELLS% 0.1 /100WBC (0.0-0.0); PLATELET COUNT 45 10^3/UL (140-415); POSITIVE DIFF @See below; RED BLOOD COUNT 3.04 10^6/ul (4.70-6.10); RED CELL DISTRIBUTION WIDTH 15.9 % (11.5-14.5)
[2018-02-28 06:15] LABS: ANION GAP 8 (5-13)
[2018-02-28 06:17] LABS: BLOOD UREA NITROGEN 10 mg/dl (7-20); CALCIUM 7.3 mg/dl (8.4-10.2); CARBON DIOXIDE 19 mmol/L (21-31); CHLORIDE 118 mmol/L (97-110); CREATININE 0.79 mg/dl (0.61-1.24); GLUCOSE 90 mg/dl (70-220); POTASSIUM 3.1 mmol/L (3.5-5.1); SODIUM 145 mmol/L (135-144)
[2018-02-28] MEDS: PIPER-TAZO 3.375 GM IV (PMX) 100 ML IVPB ×3 (06:45→22:16)
[2018-02-28 07:38] LABS: AADO2 Arterial 131.9 mmHg (7.0-24.0); Allen Test ACCEPTAB; Arterial Base Excess -1.7 mmol/L (-3.0-3); Arterial Blood Gas Oxygen Sat 95.9 mmHG (95.0-100.0); Arterial COHb 0.9 % (0.0-3.0); Arterial Fraction of Oxyhgb 94.8 % (93.0-99.0); Arterial HCO3 22.2 mmol/L (22.0-26.0); Arterial MetHb 0.2 % (0.0-1.5); Arterial Total Hemglobin 9.7 g/dl (12.0-18.0); Arterial pCO2 34.6 mmhg (35-45); MODE VENT - AC; Site Right Radial
[2018-02-28] MEDS: FAMOTIDINE 20 MG INJ IV (08:11)
[2018-02-28] MEDS: LEVETIRACETAM 500 MG (PMX) 100 ML IVPB ×2 (08:12→22:00)
[2018-02-28] MEDS: POTASSIUM CHLORIDE 50 ML IVPB ×2 (09:59→10:57)
[2018-02-28] MEDS: MULTIVITAMINS 10 ML, THIAMINE 100 MG, FOLIC ACID 1 MG in SOD CHLORIDE 0.9% 1,000 ML IVPB (11:14)
[2018-02-28] MEDS: ALBUMIN HUMAN 25% 100 ML IV ×2 (12:25→20:17)
[2018-02-28] MEDS: D5W-0.45 NACL + KCL 20 MEQ 1,000 ML IV (20:11)
[2018-03-01] MEDS: PROPOFOL 100 ML IV ×2 (03:00→15:00)
[2018-03-01] MEDS: VANCOMYCIN 750 MG in SOD CHLORIDE 0.9% 150 ML IVPB ×2 (03:31→16:46)
[2018-03-01] MEDS: ALBUMIN HUMAN 25% 100 ML IV (03:31)
[2018-03-01 05:21] LABS: ADD MAN DIFF? NO
[2018-03-01 05:32] LABS: WHITE BLOOD COUNT 22.3 10^3/ul (4.8-10.8)
[2018-03-01 05:32] LABS: ABNORMAL IP MESSAGE 1; BASOPHILS % 0.2 % (0.0-2.0); EOSINOPHILS % 0.1 % (0.0-7.0); HEMATOCRIT 24.1 % (42.0-52.0); HEMOGLOBIN 7.8 g/dl (14.0-18.0); LYMPHOCYTES # 1.2 10^3/ul (0.8-2.9); LYMPHOCYTES % 5.2 % (15.0-51.0); MEAN CORPUSCULAR HEMOGLOBIN 31.5 pg (29.0-33.0); MEAN CORPUSCULAR HGB CONC 32.4 g/dl (32.0-37.0); MEAN CORPUSCULAR VOLUME 97.2 fl (82.0-101.0); MEAN PLATELET VOLUME 12.4 fl (7.4-10.4); MONOCYTE # 1.7 10^3/ul (0.3-0.9); MONOCYTES % 7.5 % (0.0-11.0); NEUTROPHIL # 18.5 10^3/ul (1.6-7.5); NEUTROPHILS % 83.1 % (39.0-77.0); NUCLEATED RED BLOOD CELLS% 0.1 /100WBC (0.0-0.0); PLATELET COUNT 31 10^3/UL (140-415); POSITIVE DIFF @See below; RED BLOOD COUNT 2.48 10^6/ul (4.70-6.10); RED CELL DISTRIBUTION WIDTH 15.6 % (11.5-14.5)
[2018-03-01 05:55] LABS: MAGNESIUM 1.8 mg/dl (1.7-2.5)
[2018-03-01 05:55] LABS: PHOSPHORUS 1.5 mg/dl (2.5-4.9)
[2018-03-01 05:56] LABS: ALANINE AMINOTRANSFERASE 29 IU/L (13-69); ALBUMIN 2.6 g/dl (3.3-4.9); ALBUMIN/GLOBULIN RATIO 1.85; ALKALINE PHOSPHATASE 39 IU/L (42-121); ANION GAP 11 (5-13); ASPARTATE AMINO TRANSFERASE 30 IU/L (15-46); BILIRUBIN,INDIRECT 1.2 mg/dl (0-1.1); BILIRUBIN,TOTAL 1.9 mg/dl (0.2-1.3); BLOOD UREA NITROGEN 10 mg/dl (7-20); CALCIUM 7.6 mg/dl (8.4-10.2); CARBON DIOXIDE 19 mmol/L (21-31); CHLORIDE 118 mmol/L (97-110); CREATININE 0.82 mg/dl (0.61-1.24); GLUCOSE 112 mg/dl (70-220); POTASSIUM 3.3 mmol/L (3.5-5.1); SODIUM 148 mmol/L (135-144)
[2018-03-01 05:57] LABS: PHOSPHORUS 1.6 mg/dl (2.5-4.9)
[2018-03-01] MEDS: PIPER-TAZO 3.375 GM IV (PMX) 100 ML IVPB ×3 (06:16→22:20)
[2018-03-01] MEDS: LEVETIRACETAM 500 MG (PMX) 100 ML IVPB ×2 (08:35→21:03)
[2018-03-01] MEDS: FAMOTIDINE 20 MG INJ IV (08:35)
[2018-03-01] MEDS: MULTIVITAMINS 10 ML, THIAMINE 100 MG, FOLIC ACID 1 MG in SOD CHLORIDE 0.9% 1,000 ML IVPB (08:45)
[2018-03-01] MEDS: D5W-0.45 NACL + KCL 20 MEQ 1,000 ML IV ×2 (12:00→18:37)
[2018-03-01] MEDS: SOD CHLORIDE 0.9% 100 ML (16:20)
[2018-03-01] MEDS: IOHEXOL 300MG/ML 150 ML BTL (16:21)
[2018-03-01] MEDS: ARTIFICIAL TEARS 15 ML OPH BOTH EYES ×2 (18:37→21:02)
[2018-03-01] MEDS: POTASSIUM PHOSPHATE 30 MEQ in SOD CHLORIDE 0.9% 250 ML IVPB (21:02)
[2018-03-02 02:18] LABS: TYPE AND SCREEN 1 1
[2018-03-02] MEDS: PROPOFOL 100 ML IV ×2 (02:36→15:00)
[2018-03-02 04:20] LABS: ADD MAN DIFF? NO
[2018-03-02 04:26] LABS: ABNORMAL IP MESSAGE 1; BASOPHIL # 0.1 10^3/ul (0.0-0.1); BASOPHILS % 0.2 % (0.0-2.0); EOSINOPHILS % 0.1 % (0.0-7.0); HEMOGLOBIN 8.7 g/dl (14.0-18.0); LYMPHOCYTES # 1.6 10^3/ul (0.8-2.9); LYMPHOCYTES % 4.6 % (15.0-51.0); MEAN CORPUSCULAR HEMOGLOBIN 31.5 pg (29.0-33.0); MEAN CORPUSCULAR HGB CONC 32.2 g/dl (32.0-37.0); MEAN CORPUSCULAR VOLUME 97.8 fl (82.0-101.0); MEAN PLATELET VOLUME 10.4 fl (7.4-10.4); MONOCYTE # 2.2 10^3/ul (0.3-0.9); MONOCYTES % 6.2 % (0.0-11.0); NEUTROPHIL # 29.9 10^3/ul (1.6-7.5); NEUTROPHILS % 84.8 % (39.0-77.0); NUCLEATED RED BLOOD CELLS% 0.1 /100WBC (0.0-0.0); POSITIVE DIFF @See below; RED BLOOD COUNT 2.76 10^6/ul (4.70-6.10); RED CELL DISTRIBUTION WIDTH 15.5 % (11.5-14.5)
[2018-03-02 04:26] LABS: WHITE BLOOD COUNT 35.3 10^3/ul (4.8-10.8)
[2018-03-02] MEDS: VANCOMYCIN 750 MG in SOD CHLORIDE 0.9% 150 ML IVPB ×2 (04:32→17:03)
[2018-03-02 04:39] LABS: ANION GAP 8 (5-13); BLOOD UREA NITROGEN 10 mg/dl (7-20); CALCIUM 7.8 mg/dl (8.4-10.2); CARBON DIOXIDE 22 mmol/L (21-31); CHLORIDE 118 mmol/L (97-110); CREATININE 0.91 mg/dl (0.61-1.24); GLUCOSE 110 mg/dl (70-220); POTASSIUM 3.2 mmol/L (3.5-5.1); SODIUM 148 mmol/L (135-144)
[2018-03-02 04:40] LABS: MAGNESIUM 1.8 mg/dl (1.7-2.5)
[2018-03-02 04:40] LABS: PHOSPHORUS 2.9 mg/dl (2.5-4.9)
[2018-03-02 04:42] LABS: INR 1.14; PROTIME 14.8 Sec (11.9-14.9); PT RATIO 1.2
[2018-03-02 04:43] LABS: PARTIAL THROMBOPLASTIN TIME 28.8 Sec (23.0-35.0)
[2018-03-02 05:01] LABS: PLATELET COUNT 99 10^3/UL (140-415)
[2018-03-02] MEDS: PIPER-TAZO 3.375 GM IV (PMX) 100 ML IVPB (06:23)
[2018-03-02] MEDS: MULTIVITAMINS 10 ML, THIAMINE 100 MG, FOLIC ACID 1 MG in SOD CHLORIDE 0.9% 1,000 ML IVPB (08:00)
[2018-03-02] MEDS: FAMOTIDINE 20 MG INJ IV (08:00)
[2018-03-02] MEDS: LEVETIRACETAM 500 MG (PMX) 100 ML IVPB ×2 (08:00→21:05)
[2018-03-02] MEDS: ARTIFICIAL TEARS 15 ML OPH BOTH EYES ×4 (08:00→21:05)
[2018-03-02 10:39] LABS: AADO2 Arterial 148.4 mmHg (7.0-24.0); Allen Test ACCEPTAB; Arterial Base Excess -3.5 mmol/L (-3.0-3); Arterial HCO3 18.6 mmol/L (22.0-26.0); Arterial pCO2 26.6 mmhg (35-45); MODE VENT - AC; Site Right Radial
[2018-03-02] MEDS: LIDOCAINE 1% (MPF) 5 ML VIAL (12:27)
[2018-03-02] MEDS: metroNIDAZOLE 500 MG/NS (PMX) 100 ML IVPB ×2 (12:38→19:14)
[2018-03-02 13:12] LABS: ADD UMIC YES; UR ASCORBIC ACID NEGATIVE (NEGATIVE); UR BACTERIA FEW /HPF (NONE SEEN); UR BILIRUBIN (Dip) NEGATIVE (NEGATIVE); UR BLOOD (Dip) 2+ mg/dL (NEGATIVE); UR CLARITY SLIGHTLY CLOUDY (CLEAR); UR COLOR YELLOW (YELLOW); UR GLUCOSE (Dip) NEGATIVE (NEGATIVE); UR KETONES (Dip) TRACE mg/dL (NEGATIVE); UR LEUKOCYTE ESTERASE (Dip) TRACE Leu/ul (NEGATIVE); UR MUCUS FEW /HPF (NONE SEEN); UR NITRITE (Dip) NEGATIVE (NEGATIVE); UR RBC 9 /HPF (0-5); UR SPECIFIC GRAVITY (Dip) 1.026 (1.003-1.030); UR TOTAL PROTEIN (Dip) 1+ mg/dl (NEGATIVE); UR UROBILINOGEN (Dip) NEGATIVE (NEGATIVE); UR WBC 8 /HPF (0-5)
[2018-03-02] MEDS: CEFTRIAXONE 500 MG in SOD CHLORIDE 0.9% 50 ML IVPB (15:25)
[2018-03-02 16:04] LABS: VANCOMYCIN,TROUGH 18.4 ug/ml (10.0-20.0)
[2018-03-03] MEDS: metroNIDAZOLE 500 MG/NS (PMX) 100 ML IVPB ×4 (00:19→18:00)
[2018-03-03] MEDS: PROPOFOL 100 ML IV ×2 (02:28→15:00)
[2018-03-03] MEDS: VANCOMYCIN 500MG/NS (PMX) 100 ML IVPB ×2 (03:49→16:55)
[2018-03-03 04:51] LABS: ADD MAN DIFF? NO
[2018-03-03 04:57] LABS: ABNORMAL IP MESSAGE 1; BASOPHIL # 0.1 10^3/ul (0.0-0.1); BASOPHILS % 0.2 % (0.0-2.0); EOSINOPHILS % 0.1 % (0.0-7.0); HEMOGLOBIN 8.6 g/dl (14.0-18.0); LYMPHOCYTES # 1.2 10^3/ul (0.8-2.9); LYMPHOCYTES % 4.1 % (15.0-51.0); MEAN CORPUSCULAR HEMOGLOBIN 31.5 pg (29.0-33.0); MEAN CORPUSCULAR HGB CONC 31.9 g/dl (32.0-37.0); MEAN CORPUSCULAR VOLUME 98.9 fl (82.0-101.0); MEAN PLATELET VOLUME 11.3 fl (7.4-10.4); MONOCYTE # 1.8 10^3/ul (0.3-0.9); MONOCYTES % 6.1 % (0.0-11.0); NEUTROPHILS % 86.4 % (39.0-77.0); POSITIVE DIFF @See below; RED BLOOD COUNT 2.73 10^6/ul (4.70-6.10); RED CELL DISTRIBUTION WIDTH 15.7 % (11.5-14.5)
[2018-03-03 04:57] LABS: WHITE BLOOD COUNT 30.1 10^3/ul (4.8-10.8)
[2018-03-03 05:26] LABS: PLATELET COUNT 64 10^3/UL (140-415)
[2018-03-03 05:31] LABS: ANION GAP 6 (5-13); BLOOD UREA NITROGEN 13 mg/dl (7-20); CALCIUM 7.7 mg/dl (8.4-10.2); CARBON DIOXIDE 21 mmol/L (21-31); CHLORIDE 122 mmol/L (97-110); CREATININE 0.91 mg/dl (0.61-1.24); GLUCOSE 94 mg/dl (70-220); SODIUM 149 mmol/L (135-144)
[2018-03-03 05:49] LABS: POTASSIUM 2.9 mmol/L (3.5-5.1)
[2018-03-03] MEDS: POTASSIUM CHLORIDE 100 ML IVPB ×3 (06:08→10:59)
[2018-03-03 07:28] LABS: ANISOCYTOSIS 1+ (0-0); BAND NEUTROPHILS #M 1.5 10^3/ul (0.0-0.6); BAND NEUTROPHILS % (M) 5 % (0-4); BURR CELLS 1+ (0-0); LYMPHOCYTES #M 0.6 10^3/ul (0.8-2.9); LYMPHOCYTES % (M) 2 % (15-51); MONOCYTE #M 1.2 10^3/ul (0.3-0.9); MONOCYTES % (M) 4 % (0-11); MYELOCYTES #M 0.6 10^3/ul (0.0-0.0); MYELOCYTES % (M) 2 % (0-0); PLATELET ESTIMATE SIG DECREASED; POIKILOCYTOSIS 2+ (0-0); POLYCHROMASIA 1+ (0-0); SEG NEUT #M 26.6 10^3/ul (1.6-7.5); SEGMENTED NEUTROPHILS (M) % 87 % (39-77); SMUDGE%M 2 % (0-0)
[2018-03-03] MEDS: FAMOTIDINE 20 MG INJ IV (08:58)
[2018-03-03] MEDS: MULTIVITAMINS 10 ML, THIAMINE 100 MG, FOLIC ACID 1 MG in SOD CHLORIDE 0.9% 1,000 ML IVPB (08:58)
[2018-03-03] MEDS: LEVETIRACETAM 500 MG (PMX) 100 ML IVPB ×2 (08:58→20:36)
[2018-03-03] MEDS: ARTIFICIAL TEARS 15 ML OPH BOTH EYES ×4 (08:58→20:37)
[2018-03-03] MEDS: FUROSEMIDE 20 MG INJ IV (13:18)
[2018-03-03] MEDS: CEFTRIAXONE 500 MG in SOD CHLORIDE 0.9% 50 ML IVPB (14:05)
[2018-03-04] MEDS: metroNIDAZOLE 500 MG/NS (PMX) 100 ML IVPB ×5 (00:13→23:32)
[2018-03-04] MEDS: PROPOFOL 100 ML IV ×2 (03:00→15:00)
[2018-03-04] MEDS: VANCOMYCIN 500MG/NS (PMX) 100 ML IVPB (03:56)
[2018-03-04 05:05] LABS: ADD MAN DIFF? NO
[2018-03-04 05:09] LABS: ABNORMAL IP MESSAGE 1; BASOPHIL # 0.1 10^3/ul (0.0-0.1); BASOPHILS % 0.2 % (0.0-2.0); EOSINOPHILS % 0.1 % (0.0-7.0); HEMATOCRIT 25.5 % (42.0-52.0); HEMOGLOBIN 8.2 g/dl (14.0-18.0); LYMPHOCYTES # 1.5 10^3/ul (0.8-2.9); LYMPHOCYTES % 5.1 % (15.0-51.0); MEAN CORPUSCULAR HEMOGLOBIN 31.7 pg (29.0-33.0); MEAN CORPUSCULAR HGB CONC 32.2 g/dl (32.0-37.0); MEAN CORPUSCULAR VOLUME 98.5 fl (82.0-101.0); MEAN PLATELET VOLUME 11.6 fl (7.4-10.4); MONOCYTE # 1.5 10^3/ul (0.3-0.9); MONOCYTES % 5.4 % (0.0-11.0); NEUTROPHIL # 24.6 10^3/ul (1.6-7.5); NEUTROPHILS % 86.7 % (39.0-77.0); PLATELET COUNT 40 10^3/UL (140-415); POSITIVE DIFF @See below; RED BLOOD COUNT 2.59 10^6/ul (4.70-6.10); RED CELL DISTRIBUTION WIDTH 15.6 % (11.5-14.5)
[2018-03-04 05:09] LABS: WHITE BLOOD COUNT 28.4 10^3/ul (4.8-10.8)
[2018-03-04 05:29] LABS: ANION GAP 1 (5-13); BLOOD UREA NITROGEN 14 mg/dl (7-20); CALCIUM 7.7 mg/dl (8.4-10.2); CARBON DIOXIDE 27 mmol/L (21-31); CHLORIDE 120 mmol/L (97-110); CREATININE 0.95 mg/dl (0.61-1.24); GLUCOSE 143 mg/dl (70-220); MAGNESIUM 1.8 mg/dl (1.7-2.5); PHOSPHORUS 1.9 mg/dl (2.5-4.9); SODIUM 148 mmol/L (135-144)
[2018-03-04 05:42] LABS: POTASSIUM 2.9 mmol/L (3.5-5.1)
[2018-03-04 07:29] LABS: AADO2 Arterial 137.5 mmHg (7.0-24.0); Allen Test ACCEPTAB; Arterial Base Excess -0.4 mmol/L (-3.0-3); Arterial Blood Gas Oxygen Sat 95.7 mmHG (95.0-100.0); Arterial COHb 0.6 % (0.0-3.0); Arterial Fraction of Oxyhgb 94.6 % (93.0-99.0); Arterial HCO3 22.2 mmol/L (22.0-26.0); Arterial MetHb 0.5 % (0.0-1.5); Arterial Total Hemglobin 9.4 g/dl (12.0-18.0); MODE VENT - AC; Site Right Radial
[2018-03-04] MEDS: FAMOTIDINE 20 MG INJ IV (08:37)
[2018-03-04] MEDS: LEVETIRACETAM 500 MG (PMX) 100 ML IVPB ×2 (08:37→20:35)
[2018-03-04] MEDS: ARTIFICIAL TEARS 15 ML OPH BOTH EYES ×4 (08:38→20:36)
[2018-03-04] MEDS: POTASSIUM PHOSPHATE 30 MEQ in SOD CHLORIDE 0.9% 250 ML IVPB (08:38)
[2018-03-04 11:16] LABS: LACTIC ACID 1.4 mmol/L (0.5-2.0)
[2018-03-04 11:24] LABS: AMMONIA < 9 umol/l (9-30)
[2018-03-04] MEDS: CEFTRIAXONE 500 MG in SOD CHLORIDE 0.9% 50 ML IVPB (12:16)
[2018-03-04 15:54] LABS: VANCOMYCIN,TROUGH 18.5 ug/ml (10.0-20.0)
[2018-03-04] MEDS: VANCOMYCIN 750 MG in SOD CHLORIDE 0.9% 150 ML IVPB (18:25)
[2018-03-05] MEDS: PROPOFOL 100 ML IV ×2 (03:00→14:01)
[2018-03-05 05:05] LABS: ADD MAN DIFF? NO
[2018-03-05] MEDS: metroNIDAZOLE 500 MG/NS (PMX) 100 ML IVPB ×4 (05:08→23:54)
[2018-03-05 05:23] LABS: WHITE BLOOD COUNT 29.9 10^3/ul (4.8-10.8)
[2018-03-05 05:23] LABS: ABNORMAL IP MESSAGE 1; BASOPHIL # 0.1 10^3/ul (0.0-0.1); BASOPHILS % 0.2 % (0.0-2.0); EOSINOPHILS % 0.1 % (0.0-7.0); HEMATOCRIT 27.5 % (42.0-52.0); LYMPHOCYTES # 1.6 10^3/ul (0.8-2.9); LYMPHOCYTES % 5.4 % (15.0-51.0); MEAN CORPUSCULAR HEMOGLOBIN 32.4 pg (29.0-33.0); MEAN CORPUSCULAR HGB CONC 32.7 g/dl (32.0-37.0); MEAN CORPUSCULAR VOLUME 98.9 fl (82.0-101.0); MEAN PLATELET VOLUME 12.7 fl (7.4-10.4); MONOCYTE # 1.3 10^3/ul (0.3-0.9); MONOCYTES % 4.4 % (0.0-11.0); NEUTROPHIL # 26.2 10^3/ul (1.6-7.5); NEUTROPHILS % 87.6 % (39.0-77.0); NUCLEATED RED BLOOD CELLS% 0.1 /100WBC (0.0-0.0); PLATELET COUNT 32 10^3/UL (140-415); POSITIVE DIFF @See below; RED BLOOD COUNT 2.78 10^6/ul (4.70-6.10); RED CELL DISTRIBUTION WIDTH 15.7 % (11.5-14.5)
[2018-03-05 05:37] LABS: ANION GAP 4 (5-13); BLOOD UREA NITROGEN 15 mg/dl (7-20); CALCIUM 7.6 mg/dl (8.4-10.2); CARBON DIOXIDE 26 mmol/L (21-31); CHLORIDE 120 mmol/L (97-110); CREATININE 0.92 mg/dl (0.61-1.24); GLUCOSE 122 mg/dl (70-220); MAGNESIUM 1.8 mg/dl (1.7-2.5); PHOSPHORUS 2.4 mg/dl (2.5-4.9); SODIUM 150 mmol/L (135-144)
[2018-03-05] MEDS: ACETAMINOPHEN 650MG/20.3ML CUP NGT (06:10)
[2018-03-05] MEDS: FAMOTIDINE 20 MG INJ IV (09:45)
[2018-03-05] MEDS: ARTIFICIAL TEARS 15 ML OPH BOTH EYES ×4 (09:45→20:27)
[2018-03-05] MEDS: LEVETIRACETAM 500 MG (PMX) 100 ML IVPB ×2 (09:45→20:27)
[2018-03-05] MEDS: CEFTRIAXONE 500 MG in SOD CHLORIDE 0.9% 50 ML IVPB (14:19)
[2018-03-05] MEDS: POTASSIUM CHLORIDE 100 ML IVPB ×2 (15:43→17:10)
[2018-03-05] MEDS: D5W + KCL 20 MEQ 1,000 ML IV (16:26)
[2018-03-05] MEDS: CASPOFUNGIN 70 MG in SOD CHLORIDE 0.9% 250 ML IVPB (17:09)
[2018-03-05] MEDS: POTASSIUM PHOSPHATE 15 MM in SOD CHLORIDE 0.9% 250 ML IVPB (17:09)
[2018-03-05] MEDS: CIPROFLOXACIN 400MG/D5W 200 ML IVPB (20:27)
[2018-03-06] MEDS: PROPOFOL 100 ML IV ×2 (03:00→15:00)
[2018-03-06 05:09] LABS: ADD MAN DIFF? NO
[2018-03-06 05:23] LABS: ABNORMAL IP MESSAGE 1; BASOPHILS % 0.1 % (0.0-2.0); HEMATOCRIT 26.1 % (42.0-52.0); HEMOGLOBIN 8.5 g/dl (14.0-18.0); LYMPHOCYTES # 1.4 10^3/ul (0.8-2.9); LYMPHOCYTES % 5.1 % (15.0-51.0); MEAN CORPUSCULAR HEMOGLOBIN 32.2 pg (29.0-33.0); MEAN CORPUSCULAR HGB CONC 32.6 g/dl (32.0-37.0); MEAN CORPUSCULAR VOLUME 98.9 fl (82.0-101.0); MEAN PLATELET VOLUME 12.8 fl (7.4-10.4); MONOCYTE # 1.1 10^3/ul (0.3-0.9); MONOCYTES % 4.1 % (0.0-11.0); NEUTROPHIL # 24.6 10^3/ul (1.6-7.5); NEUTROPHILS % 89.4 % (39.0-77.0); POSITIVE DIFF @See below; RED BLOOD COUNT 2.64 10^6/ul (4.70-6.10); RED CELL DISTRIBUTION WIDTH 16.2 % (11.5-14.5)
[2018-03-06] MEDS: PANTOPRAZOLE (EC) 40 MG TAB PO (05:45)
[2018-03-06] MEDS: metroNIDAZOLE 500 MG/NS (PMX) 100 ML IVPB ×3 (05:45→18:15)
[2018-03-06 05:59] LABS: ANION GAP 4 (5-13); BLOOD UREA NITROGEN 17 mg/dl (7-20); CALCIUM 7.4 mg/dl (8.4-10.2); CARBON DIOXIDE 30 mmol/L (21-31); CHLORIDE 116 mmol/L (97-110); CREATININE 0.92 mg/dl (0.61-1.24); GLUCOSE 127 mg/dl (70-220); MAGNESIUM 1.7 mg/dl (1.7-2.5); PHOSPHORUS 2.6 mg/dl (2.5-4.9); POTASSIUM 3.3 mmol/L (3.5-5.1); SODIUM 150 mmol/L (135-144)
[2018-03-06 06:03] LABS: WHITE BLOOD COUNT 27.6 10^3/ul (4.8-10.8)
[2018-03-06 06:05] LABS: PLATELET COUNT 27 10^3/UL (140-415)
[2018-03-06] MEDS: CIPROFLOXACIN 400MG/D5W 200 ML IVPB ×2 (08:25→20:40)
[2018-03-06] MEDS: ARTIFICIAL TEARS 15 ML OPH BOTH EYES ×4 (08:25→20:38)
[2018-03-06] MEDS: LEVETIRACETAM 500 MG (PMX) 100 ML IVPB ×2 (08:25→20:40)
[2018-03-06] MEDS: D5W + KCL 20 MEQ 1,000 ML IV ×2 (08:40→16:23)
[2018-03-06 14:10] LABS: AADO2 Arterial 87.4 mmHg (7.0-24.0); Arterial Blood Gas Oxygen Sat 97.9 mmHG (95.0-100.0); Arterial COHb 0.3 % (0.0-3.0); Arterial Fraction of Oxyhgb 97.3 % (93.0-99.0); Arterial HCO3 28.5 mmol/L (22.0-26.0); Arterial MetHb 0.3 % (0.0-1.5); Arterial Total Hemglobin 10.2 g/dl (12.0-18.0); Arterial pCO2 37.5 mmhg (35-45); Blood Gas PS 10; MODE VENT - CPAP; Site Right Brachial
[2018-03-06] MEDS: SOD CHLORIDE 0.9% 250 ML IV* (15:24)
[2018-03-06] MEDS: LIDOCAINE 1% (MPF) 5 ML VIAL SC (15:30)
[2018-03-06] MEDS: POTASSIUM CHLORIDE 100 ML IVPB ×2 (15:52→17:18)
[2018-03-06] MEDS: CASPOFUNGIN 50 MG in SOD CHLORIDE 0.9% 250 ML IVPB (17:17)
[2018-03-07] MEDS: metroNIDAZOLE 500 MG/NS (PMX) 100 ML IVPB ×5 (00:04→23:46)
[2018-03-07] MEDS: PROPOFOL 100 ML IV ×2 (03:00→14:25)
[2018-03-07] MEDS: PANTOPRAZOLE (EC) 40 MG TAB PO (05:26)
[2018-03-07 05:48] LABS: ADD MAN DIFF? NO
[2018-03-07 05:59] LABS: ABNORMAL IP MESSAGE 1; BASOPHILS % 0.2 % (0.0-2.0); EOSINOPHILS % 0.1 % (0.0-7.0); HEMOGLOBIN 7.8 g/dl (14.0-18.0); LYMPHOCYTES # 1.3 10^3/ul (0.8-2.9); LYMPHOCYTES % 5.4 % (15.0-51.0); MEAN CORPUSCULAR HEMOGLOBIN 31.3 pg (29.0-33.0); MEAN CORPUSCULAR HGB CONC 31.2 g/dl (32.0-37.0); MEAN CORPUSCULAR VOLUME 100.4 fl (82.0-101.0); MEAN PLATELET VOLUME 13.2 fl (7.4-10.4); MONOCYTE # 0.9 10^3/ul (0.3-0.9); MONOCYTES % 3.8 % (0.0-11.0); NEUTROPHIL # 21.8 10^3/ul (1.6-7.5); NEUTROPHILS % 89.4 % (39.0-77.0); POSITIVE DIFF @See below; RED BLOOD COUNT 2.49 10^6/ul (4.70-6.10); RED CELL DISTRIBUTION WIDTH 16.5 % (11.5-14.5)
[2018-03-07 05:59] LABS: WHITE BLOOD COUNT 24.3 10^3/ul (4.8-10.8)
[2018-03-07 06:22] LABS: PLATELET COUNT 27 10^3/UL (140-415)
[2018-03-07 06:48] LABS: ANION GAP 5 (5-13); BLOOD UREA NITROGEN 20 mg/dl (7-20); CALCIUM 7.4 mg/dl (8.4-10.2); CARBON DIOXIDE 31 mmol/L (21-31); CHLORIDE 111 mmol/L (97-110); GLUCOSE 121 mg/dl (70-220); MAGNESIUM 1.8 mg/dl (1.7-2.5); PHOSPHORUS 2.4 mg/dl (2.5-4.9); POTASSIUM 3.4 mmol/L (3.5-5.1); SODIUM 147 mmol/L (135-144)
[2018-03-07] MEDS: CIPROFLOXACIN 400MG/D5W 200 ML IVPB ×2 (08:00→20:55)
[2018-03-07] MEDS: LEVETIRACETAM 500 MG (PMX) 100 ML IVPB ×2 (08:00→22:01)
[2018-03-07] MEDS: ARTIFICIAL TEARS 15 ML OPH BOTH EYES ×4 (08:00→20:55)
[2018-03-07 11:10] LABS: AADO2 Arterial 92.1 mmHg (7.0-24.0); Arterial Base Excess 4.7 mmol/L (-3.0-3); Arterial Blood Gas Oxygen Sat 98.1 mmHG (95.0-100.0); Arterial COHb 0.3 % (0.0-3.0); Arterial Fraction of Oxyhgb 97.5 % (93.0-99.0); Arterial HCO3 27.7 mmol/L (22.0-26.0); Arterial MetHb 0.3 % (0.0-1.5); Arterial Total Hemglobin 8.6 g/dl (12.0-18.0); Arterial pCO2 34.4 mmhg (35-45); Blood Gas PS 10; MODE VENT - CPAP; Site Right Brachial
[2018-03-07] MEDS: POTASSIUM CHLORIDE 20 MEQ POWDER FOR ORAL SOLN NGT (16:26)
[2018-03-07] MEDS: CASPOFUNGIN 50 MG in SOD CHLORIDE 0.9% 250 ML IVPB (16:26)
[2018-03-07] MEDS: D5W + KCL 20 MEQ 1,000 ML IV (18:22)
[2018-03-07 19:57] LABS: TYPE AND SCREEN 1 1
[2018-03-08] MEDS: PROPOFOL 100 ML IV ×2 (03:00→12:49)
[2018-03-08] MEDS: metroNIDAZOLE 500 MG/NS (PMX) 100 ML IVPB ×4 (05:21→23:16)
[2018-03-08] MEDS: PANTOPRAZOLE (EC) 40 MG TAB PO (05:22)
[2018-03-08] MEDS: ARTIFICIAL TEARS 15 ML OPH BOTH EYES ×4 (09:15→20:51)
[2018-03-08] MEDS: LEVETIRACETAM 500 MG (PMX) 100 ML IVPB ×2 (09:19→20:52)
[2018-03-08] MEDS: CIPROFLOXACIN 400MG/D5W 200 ML IVPB ×2 (10:50→20:51)
[2018-03-08] MEDS: D5W + KCL 20 MEQ 1,000 ML IV (11:23)
[2018-03-08] MEDS: BUMETANIDE 12 MG in DEXTROSE 5% 72 ML IV (12:33)
[2018-03-08 14:42] LABS: ADD MAN DIFF? NO
[2018-03-08 14:44] LABS: ABNORMAL IP MESSAGE 1; BASOPHILS % 0.1 % (0.0-2.0); EOSINOPHILS % 0.2 % (0.0-7.0); HEMATOCRIT 24.1 % (42.0-52.0); HEMOGLOBIN 7.6 g/dl (14.0-18.0); LYMPHOCYTES # 1.1 10^3/ul (0.8-2.9); LYMPHOCYTES % 5.5 % (15.0-51.0); MEAN CORPUSCULAR HEMOGLOBIN 31.3 pg (29.0-33.0); MEAN CORPUSCULAR HGB CONC 31.5 g/dl (32.0-37.0); MEAN CORPUSCULAR VOLUME 99.2 fl (82.0-101.0); MEAN PLATELET VOLUME 11.7 fl (7.4-10.4); MONOCYTE # 0.7 10^3/ul (0.3-0.9); MONOCYTES % 3.6 % (0.0-11.0); NEUTROPHIL # 18.3 10^3/ul (1.6-7.5); NEUTROPHILS % 89.5 % (39.0-77.0); PLATELET COUNT 62 10^3/UL (140-415); POSITIVE DIFF @See below; RED BLOOD COUNT 2.43 10^6/ul (4.70-6.10); RED CELL DISTRIBUTION WIDTH 15.8 % (11.5-14.5)
[2018-03-08 14:44] LABS: WHITE BLOOD COUNT 20.4 10^3/ul (4.8-10.8)
[2018-03-08 15:02] LABS: ANION GAP 3 (5-13); BLOOD UREA NITROGEN 19 mg/dl (7-20); CALCIUM 7.3 mg/dl (8.4-10.2); CARBON DIOXIDE 27 mmol/L (21-31); CHLORIDE 112 mmol/L (97-110); CREATININE 0.84 mg/dl (0.61-1.24); GLUCOSE 150 mg/dl (70-220); POTASSIUM 3.2 mmol/L (3.5-5.1); SODIUM 142 mmol/L (135-144)
[2018-03-08] MEDS: POTASSIUM CHLORIDE 20 MEQ POWDER FOR ORAL SOLN NGT (16:29)
[2018-03-08] MEDS: CASPOFUNGIN 50 MG in SOD CHLORIDE 0.9% 250 ML IVPB (17:10)
[2018-03-09] MEDS: metroNIDAZOLE 500 MG/NS (PMX) 100 ML IVPB ×4 (05:30→23:30)
[2018-03-09] MEDS: PANTOPRAZOLE (EC) 40 MG TAB PO (05:30)
[2018-03-09 06:10] LABS: ADD MAN DIFF? NO
[2018-03-09 06:18] LABS: ABNORMAL IP MESSAGE 1; BASOPHILS % 0.2 % (0.0-2.0); HEMATOCRIT 27.8 % (42.0-52.0); HEMOGLOBIN 8.9 g/dl (14.0-18.0); LYMPHOCYTES # 1.3 10^3/ul (0.8-2.9); LYMPHOCYTES % 5.4 % (15.0-51.0); MEAN CORPUSCULAR HEMOGLOBIN 31.1 pg (29.0-33.0); MEAN CORPUSCULAR VOLUME 97.2 fl (82.0-101.0); MEAN PLATELET VOLUME 12.3 fl (7.4-10.4); MONOCYTE # 0.8 10^3/ul (0.3-0.9); MONOCYTES % 3.4 % (0.0-11.0); NEUTROPHIL # 20.9 10^3/ul (1.6-7.5); NEUTROPHILS % 89.8 % (39.0-77.0); PLATELET COUNT 73 10^3/UL (140-415); POSITIVE DIFF @See below; RED BLOOD COUNT 2.86 10^6/ul (4.70-6.10); RED CELL DISTRIBUTION WIDTH 15.8 % (11.5-14.5)
[2018-03-09 06:18] LABS: WHITE BLOOD COUNT 23.3 10^3/ul (4.8-10.8)
[2018-03-09 06:26] LABS: MAGNESIUM 1.7 mg/dl (1.7-2.5)
[2018-03-09 06:34] LABS: ANION GAP 8 (5-13); BLOOD UREA NITROGEN 20 mg/dl (7-20); CALCIUM 7.5 mg/dl (8.4-10.2); CARBON DIOXIDE 31 mmol/L (21-31); CHLORIDE 106 mmol/L (97-110); CREATININE 1.02 mg/dl (0.61-1.24); GLUCOSE 114 mg/dl (70-220); POTASSIUM 3.3 mmol/L (3.5-5.1); SODIUM 145 mmol/L (135-144)
[2018-03-09] MEDS: CIPROFLOXACIN 400MG/D5W 200 ML IVPB (08:09)
[2018-03-09] MEDS: ACETAMINOPHEN 650MG/20.3ML CUP NGT (08:10)
[2018-03-09] MEDS: ARTIFICIAL TEARS 15 ML OPH BOTH EYES ×4 (08:10→20:41)
[2018-03-09] MEDS: POTASSIUM CHLORIDE 20 MEQ POWDER FOR ORAL SOLN NGT (08:25)
[2018-03-09] MEDS: LEVETIRACETAM 500 MG (PMX) 100 ML IVPB ×2 (08:25→20:41)
[2018-03-09] MEDS ORDERED: VANCOMYCIN IV PER PHARMACY XX (10:00)
[2018-03-09 10:23] LABS: AADO2 Arterial 50.9 mmHg (7.0-24.0); Allen Test ACCEPTAB; Arterial Base Excess 6.4 mmol/L (-3.0-3); Arterial Blood Gas Oxygen Sat 98.2 mmHG (95.0-100.0); Arterial COHb 0.1 % (0.0-3.0); Arterial HCO3 28.6 mmol/L (22.0-26.0); Arterial MetHb 0.1 % (0.0-1.5); Arterial Total Hemglobin 9.1 g/dl (12.0-18.0); Arterial pCO2 32.1 mmhg (35-45); MODE NASAL CANNULA; Site Right Radial
[2018-03-09] MEDS: CEFEPIME 1GM/50 ML (PMX) 50 ML IVPB ×2 (10:24→20:42)
[2018-03-09] MEDS: VANCOMYCIN 1.25 GM in SOD CHLORIDE 0.9% 250 ML IVPB (11:32)
[2018-03-09] MEDS: CASPOFUNGIN 50 MG in SOD CHLORIDE 0.9% 250 ML IVPB (16:10)
[2018-03-10] MEDS: BUMETANIDE 1 MG INJ IV ×2 (05:26→17:17)
[2018-03-10] MEDS: metroNIDAZOLE 500 MG/NS (PMX) 100 ML IVPB ×4 (05:26→23:38)
[2018-03-10] MEDS: PANTOPRAZOLE (EC) 40 MG TAB PO (05:26)
[2018-03-10 06:35] LABS: BLOOD UREA NITROGEN 19 mg/dl (7-20)
[2018-03-10 06:35] LABS: CREATININE 0.98 mg/dl (0.61-1.24)
[2018-03-10] MEDS: CEFEPIME 1GM/50 ML (PMX) 50 ML IVPB ×2 (08:24→21:37)
[2018-03-10] MEDS: LEVETIRACETAM 500 MG (PMX) 100 ML IVPB ×2 (08:24→21:37)
[2018-03-10] MEDS: ARTIFICIAL TEARS 15 ML OPH BOTH EYES ×4 (08:24→21:37)
[2018-03-10] MEDS: VANCOMYCIN 1 GM 250 ML IVPB (11:17)
[2018-03-10] MEDS: MAGNESIUM SULFATE 3 GM in DEXTROSE 5% 100 ML IVPB (12:41)
[2018-03-10] MEDS ORDERED: morphine LIQ (10 MG/5 ML) CUP GTB (14:01)
[2018-03-10] MEDS: CASPOFUNGIN 50 MG in SOD CHLORIDE 0.9% 250 ML IVPB (16:14)
[2018-03-11 05:04] LABS: AADO2 Arterial 131.5 mmHg (7.0-24.0); Allen Test ACCEPTAB; Arterial Base Excess 4.9 mmol/L (-3.0-3); Arterial Blood Gas Oxygen Sat 91.9 mmHG (95.0-100.0); Arterial COHb 0.6 % (0.0-3.0); Arterial HCO3 27.4 mmol/L (22.0-26.0); Arterial MetHb 0.4 % (0.0-1.5); Arterial Total Hemglobin 7.7 g/dl (12.0-18.0); Arterial pCO2 31.5 mmhg (35-45); MODE NASAL CANNULA; Site Right Radial
[2018-03-11 05:06] LABS: ADD MAN DIFF? NO
[2018-03-11 05:13] LABS: ABNORMAL IP MESSAGE 1; BASOPHILS % 0.2 % (0.0-2.0); EOSINOPHILS % 0.2 % (0.0-7.0); HEMATOCRIT 25.2 % (42.0-52.0); HEMOGLOBIN 7.9 g/dl (14.0-18.0); LYMPHOCYTES # 1.7 10^3/ul (0.8-2.9); LYMPHOCYTES % 7.7 % (15.0-51.0); MEAN CORPUSCULAR HEMOGLOBIN 30.9 pg (29.0-33.0); MEAN CORPUSCULAR HGB CONC 31.3 g/dl (32.0-37.0); MEAN CORPUSCULAR VOLUME 98.4 fl (82.0-101.0); MEAN PLATELET VOLUME 12.7 fl (7.4-10.4); MONOCYTE # 0.8 10^3/ul (0.3-0.9); MONOCYTES % 3.7 % (0.0-11.0); NEUTROPHIL # 18.6 10^3/ul (1.6-7.5); PLATELET COUNT 72 10^3/UL (140-415); POSITIVE DIFF @See below; RED BLOOD COUNT 2.56 10^6/ul (4.70-6.10); RED CELL DISTRIBUTION WIDTH 15.9 % (11.5-14.5)
[2018-03-11 05:13] LABS: WHITE BLOOD COUNT 21.3 10^3/ul (4.8-10.8)
[2018-03-11 05:36] LABS: LACTIC ACID 1.8 mmol/L (0.5-2.0)
[2018-03-11 05:38] LABS: MAGNESIUM 2.5 mg/dl (1.7-2.5)
[2018-03-11 05:47] LABS: ANION GAP 5 (5-13); BLOOD UREA NITROGEN 24 mg/dl (7-20); CALCIUM 7.6 mg/dl (8.4-10.2); CARBON DIOXIDE 34 mmol/L (21-31); CHLORIDE 108 mmol/L (97-110); CREATININE 1.09 mg/dl (0.61-1.24); GLUCOSE 115 mg/dl (70-220); SODIUM 147 mmol/L (135-144)
[2018-03-11 06:16] LABS: POTASSIUM 2.9 mmol/L (3.5-5.1)
[2018-03-11] MEDS: LANSOPRAZOLE 30 MG CAP GTB (06:20)
[2018-03-11] MEDS: BUMETANIDE 1 MG INJ IV ×2 (06:20→18:20)
[2018-03-11] MEDS: metroNIDAZOLE 500 MG/NS (PMX) 100 ML IVPB ×4 (06:20→23:36)
[2018-03-11] MEDS: POTASSIUM CHLORIDE 20 MEQ POWDER FOR ORAL SOLN NGT ×3 (06:31→19:52)
[2018-03-11] MEDS: LEVETIRACETAM 500 MG (PMX) 100 ML IVPB ×2 (09:14→21:38)
[2018-03-11] MEDS: CEFEPIME 1GM/50 ML (PMX) 50 ML IVPB ×2 (09:14→21:38)
[2018-03-11] MEDS: ARTIFICIAL TEARS 15 ML OPH BOTH EYES ×4 (09:14→21:37)
[2018-03-11] MEDS: FUROSEMIDE 40 MG INJ IV (09:44)
[2018-03-11] MEDS: ALBUTEROL/IPRATROPIUM (NEB) 3 ML AMP HHN ×3 (10:42→19:31)
[2018-03-11 12:03] LABS: POTASSIUM 2.9 mmol/L (3.5-5.1)
[2018-03-11] MEDS: VANCOMYCIN 1 GM 250 ML IVPB (12:30)
[2018-03-11] MEDS: POTASSIUM CHLORIDE 50 ML IVPB (15:42)
[2018-03-11] MEDS: POTASSIUM CHLORIDE 20 MEQ POWDER FOR ORAL SOLN GTB (15:42)
[2018-03-11] MEDS: CASPOFUNGIN 50 MG in SOD CHLORIDE 0.9% 250 ML IVPB (18:20)
[2018-03-11 19:08] LABS: POTASSIUM 3.8 mmol/L (3.5-5.1)
[2018-03-11] MEDS ORDERED: LIDOCAINE 1% (MPF) 5 ML VIAL INJ (20:00)
[2018-03-11] MEDS: ACETAMINOPHEN 650MG/20.3ML CUP NGT (21:37)
[2018-03-11] MEDS: BALSAM PERU/CASTOR OIL 60 GM TUBE TOP (21:37)
[2018-03-12] MEDS: ALBUTEROL/IPRATROPIUM (NEB) 3 ML AMP HHN ×4 (01:38→19:45)
[2018-03-12 04:57] LABS: ADD MAN DIFF? NO
[2018-03-12 04:58] LABS: ABNORMAL IP MESSAGE 1; BASOPHILS % 0.1 % (0.0-2.0); EOSINOPHILS # 0.1 10^3/ul (0.0-0.5); EOSINOPHILS % 0.5 % (0.0-7.0); HEMATOCRIT 23.2 % (42.0-52.0); HEMOGLOBIN 7.2 g/dl (14.0-18.0); LYMPHOCYTES # 1.5 10^3/ul (0.8-2.9); LYMPHOCYTES % 7.6 % (15.0-51.0); MEAN PLATELET VOLUME 12.3 fl (7.4-10.4); MONOCYTE # 0.7 10^3/ul (0.3-0.9); MONOCYTES % 3.2 % (0.0-11.0); NEUTROPHIL # 17.4 10^3/ul (1.6-7.5); PLATELET COUNT 66 10^3/UL (140-415); POSITIVE DIFF @See below; RED BLOOD COUNT 2.32 10^6/ul (4.70-6.10); RED CELL DISTRIBUTION WIDTH 15.8 % (11.5-14.5)
[2018-03-12 05:24] LABS: ANION GAP 5 (5-13); BLOOD UREA NITROGEN 24 mg/dl (7-20); CALCIUM 7.6 mg/dl (8.4-10.2); CARBON DIOXIDE 35 mmol/L (21-31); CHLORIDE 108 mmol/L (97-110); CREATININE 1.16 mg/dl (0.61-1.24); GLUCOSE 128 mg/dl (70-220); MAGNESIUM 2.4 mg/dl (1.7-2.5); PHOSPHORUS 2.8 mg/dl (2.5-4.9); POTASSIUM 3.6 mmol/L (3.5-5.1); SODIUM 148 mmol/L (135-144)
[2018-03-12] MEDS: metroNIDAZOLE 500 MG/NS (PMX) 100 ML IVPB ×4 (05:59→23:34)
[2018-03-12] MEDS: BUMETANIDE 1 MG INJ IV ×2 (05:59→17:50)
[2018-03-12] MEDS: LANSOPRAZOLE 30 MG CAP GTB (05:59)
[2018-03-12] MEDS: POTASSIUM CHLORIDE 20 MEQ POWDER FOR ORAL SOLN NGT (06:04)
[2018-03-12 07:57] LABS: AADO2 Arterial 168.1 mmHg (7.0-24.0); Arterial Base Excess 11.4 mmol/L (-3.0-3); Arterial Blood Gas Oxygen Sat 98.5 mmHG (95.0-100.0); Arterial COHb 0.1 % (0.0-3.0); Arterial HCO3 34.8 mmol/L (22.0-26.0); Arterial MetHb 0.4 % (0.0-1.5); Arterial Total Hemglobin 9.2 g/dl (12.0-18.0); Arterial pCO2 41.3 mmhg (35-45); MODE MASK - SIMPLE; Site Right Brachial
[2018-03-12] MEDS: LEVETIRACETAM 500 MG (PMX) 100 ML IVPB ×2 (08:25→21:06)
[2018-03-12] MEDS: ARTIFICIAL TEARS 15 ML OPH BOTH EYES ×4 (08:34→21:06)
[2018-03-12] MEDS: CEFEPIME 1GM/50 ML (PMX) 50 ML IVPB ×2 (08:50→21:47)
[2018-03-12] MEDS: BALSAM PERU/CASTOR OIL 60 GM TUBE TOP ×2 (09:17→21:45)
[2018-03-12 11:21] LABS: VANCOMYCIN,TROUGH 15.6 ug/ml (10.0-20.0)
[2018-03-12] MEDS: VANCOMYCIN 1 GM 250 ML IVPB (12:09)
[2018-03-12] MEDS: SOD CHLORIDE 0.9% 250 ML IV* (14:55)
[2018-03-12] MEDS: ACETAMINOPHEN 650MG/20.3ML CUP NGT (15:42)
[2018-03-12 16:28] LABS: IMMEDIATE SPIN CROSSMATCH 1 1
[2018-03-12] MEDS: CASPOFUNGIN 50 MG in SOD CHLORIDE 0.9% 250 ML IVPB (18:47)
[2018-03-13] MEDS: ALBUTEROL/IPRATROPIUM (NEB) 3 ML AMP HHN ×4 (01:22→19:29)
[2018-03-13] MEDS: BUMETANIDE 1 MG INJ IV ×2 (05:41→18:30)
[2018-03-13] MEDS: metroNIDAZOLE 500 MG/NS (PMX) 100 ML IVPB ×2 (05:41→12:27)
[2018-03-13] MEDS: LANSOPRAZOLE 30 MG CAP GTB (05:41)
[2018-03-13 06:03] LABS: ADD MAN DIFF? NO
[2018-03-13 06:14] LABS: WHITE BLOOD COUNT 20.5 10^3/ul (4.8-10.8)
[2018-03-13 06:14] LABS: ABNORMAL IP MESSAGE 1; BASOPHILS % 0.2 % (0.0-2.0); EOSINOPHILS # 0.1 10^3/ul (0.0-0.5); EOSINOPHILS % 0.6 % (0.0-7.0); HEMATOCRIT 30.4 % (42.0-52.0); HEMOGLOBIN 9.2 g/dl (14.0-18.0); LYMPHOCYTES # 1.5 10^3/ul (0.8-2.9); LYMPHOCYTES % 7.3 % (15.0-51.0); MEAN CORPUSCULAR HEMOGLOBIN 30.4 pg (29.0-33.0); MEAN CORPUSCULAR HGB CONC 30.3 g/dl (32.0-37.0); MEAN CORPUSCULAR VOLUME 100.3 fl (82.0-101.0); MEAN PLATELET VOLUME 12.3 fl (7.4-10.4); MONOCYTE # 0.6 10^3/ul (0.3-0.9); MONOCYTES % 3.1 % (0.0-11.0); NEUTROPHIL # 17.7 10^3/ul (1.6-7.5); NEUTROPHILS % 86.6 % (39.0-77.0); POSITIVE DIFF @See below; RED BLOOD COUNT 3.03 10^6/ul (4.70-6.10); RED CELL DISTRIBUTION WIDTH 15.6 % (11.5-14.5)
[2018-03-13 06:20] LABS: PLATELET COUNT 58 10^3/UL (140-415)
[2018-03-13 06:55] LABS: ANION GAP 4 (5-13); BLOOD UREA NITROGEN 26 mg/dl (7-20); CALCIUM 7.9 mg/dl (8.4-10.2); CARBON DIOXIDE 36 mmol/L (21-31); CHLORIDE 109 mmol/L (97-110); CREATININE 0.95 mg/dl (0.61-1.24); GLUCOSE 123 mg/dl (70-220); POTASSIUM 3.2 mmol/L (3.5-5.1); SODIUM 149 mmol/L (135-144)
[2018-03-13] MEDS: CEFEPIME 1GM/50 ML (PMX) 50 ML IVPB (08:28)
[2018-03-13] MEDS: POTASSIUM CHLORIDE 20 MEQ POWDER FOR ORAL SOLN NGT ×2 (08:28→15:39)
[2018-03-13] MEDS: BALSAM PERU/CASTOR OIL 60 GM TUBE TOP ×2 (08:28→21:05)
[2018-03-13] MEDS: ARTIFICIAL TEARS 15 ML OPH BOTH EYES ×4 (08:28→21:05)
[2018-03-13] MEDS: LEVETIRACETAM 500 MG (PMX) 100 ML IVPB ×2 (10:08→21:11)
[2018-03-13] MEDS: VANCOMYCIN 1 GM 250 ML IVPB (12:31)
[2018-03-14] MEDS: ALBUTEROL/IPRATROPIUM (NEB) 3 ML AMP HHN ×3 (01:31→08:00)
[2018-03-14] MEDS: BUMETANIDE 1 MG INJ IV ×2 (05:58→17:16)
[2018-03-14] MEDS: LANSOPRAZOLE 30 MG CAP GTB (05:58)
[2018-03-14 06:13] LABS: ADD MAN DIFF? NO
[2018-03-14 06:16] LABS: WHITE BLOOD COUNT 21.5 10^3/ul (4.8-10.8)
[2018-03-14 06:16] LABS: ABNORMAL IP MESSAGE 1; BASOPHIL # 0.1 10^3/ul (0.0-0.1); BASOPHILS % 0.3 % (0.0-2.0); EOSINOPHILS # 0.1 10^3/ul (0.0-0.5); EOSINOPHILS % 0.5 % (0.0-7.0); HEMATOCRIT 32.1 % (42.0-52.0); HEMOGLOBIN 9.9 g/dl (14.0-18.0); LYMPHOCYTES # 1.8 10^3/ul (0.8-2.9); LYMPHOCYTES % 8.4 % (15.0-51.0); MEAN CORPUSCULAR HEMOGLOBIN 30.3 pg (29.0-33.0); MEAN CORPUSCULAR HGB CONC 30.8 g/dl (32.0-37.0); MEAN CORPUSCULAR VOLUME 98.2 fl (82.0-101.0); MEAN PLATELET VOLUME 13.2 fl (7.4-10.4); MONOCYTE # 0.7 10^3/ul (0.3-0.9); MONOCYTES % 3.3 % (0.0-11.0); NEUTROPHIL # 18.3 10^3/ul (1.6-7.5); PLATELET COUNT 61 10^3/UL (140-415); POSITIVE DIFF @See below; RED BLOOD COUNT 3.27 10^6/ul (4.70-6.10); RED CELL DISTRIBUTION WIDTH 15.7 % (11.5-14.5)
[2018-03-14 06:38] LABS: ANION GAP 9 (5-13); BLOOD UREA NITROGEN 30 mg/dl (7-20); CALCIUM 8.2 mg/dl (8.4-10.2); CARBON DIOXIDE 33 mmol/L (21-31); CHLORIDE 108 mmol/L (97-110); CREATININE 0.98 mg/dl (0.61-1.24); GLUCOSE 125 mg/dl (70-220); POTASSIUM 3.9 mmol/L (3.5-5.1); SODIUM 150 mmol/L (135-144)
[2018-03-14] MEDS: ARTIFICIAL TEARS 15 ML OPH BOTH EYES ×4 (08:23→20:31)
[2018-03-14] MEDS: LEVETIRACETAM 500 MG (PMX) 100 ML IVPB ×2 (08:23→20:30)
[2018-03-14] MEDS: BALSAM PERU/CASTOR OIL 60 GM TUBE TOP ×2 (08:24→20:31)
[2018-03-14] MEDS: IPRATROPIUM (NEB) 0.5 MG/2.5 ML AMP HHN ×3 (10:30→20:19)
[2018-03-14] MEDS: LEVALBUTEROL (NEB) 0.63 MG/3 ML AMP HHN ×3 (10:30→20:19)
[2018-03-14] MEDS: ACETAMINOPHEN 650MG/20.3ML CUP NGT (20:30)
[2018-03-15] MEDS: IPRATROPIUM (NEB) 0.5 MG/2.5 ML AMP HHN ×4 (01:00→19:14)
[2018-03-15] MEDS: LEVALBUTEROL (NEB) 0.63 MG/3 ML AMP HHN ×4 (01:00→19:14)
[2018-03-15] MEDS: LANSOPRAZOLE 30 MG CAP GTB (06:09)
[2018-03-15] MEDS: BUMETANIDE 1 MG INJ IV ×2 (06:09→17:43)
[2018-03-15] MEDS: LEVETIRACETAM 500 MG (PMX) 100 ML IVPB ×2 (08:54→20:38)
[2018-03-15] MEDS: BALSAM PERU/CASTOR OIL 60 GM TUBE TOP ×2 (08:55→20:38)
[2018-03-15] MEDS: ARTIFICIAL TEARS 15 ML OPH BOTH EYES ×4 (08:55→20:38)
[2018-03-15] MEDS: D5W + KCL 20 MEQ 1,000 ML IV (16:16)
[2018-03-16] MEDS: LEVALBUTEROL (NEB) 0.63 MG/3 ML AMP HHN ×4 (01:18→19:47)
[2018-03-16] MEDS: IPRATROPIUM (NEB) 0.5 MG/2.5 ML AMP HHN ×4 (01:18→19:47)
[2018-03-16] MEDS: BUMETANIDE 1 MG INJ IV ×2 (05:33→18:37)
[2018-03-16] MEDS: LANSOPRAZOLE 30 MG CAP GTB (05:33)
[2018-03-16 06:14] LABS: WHITE BLOOD COUNT 25.8 10^3/ul (4.8-10.8)
[2018-03-16 06:14] LABS: ABNORMAL IP MESSAGE 1; HEMATOCRIT 37.1 % (42.0-52.0); HEMOGLOBIN 11.3 g/dl (14.0-18.0); MEAN CORPUSCULAR HEMOGLOBIN 30.1 pg (29.0-33.0); MEAN CORPUSCULAR HGB CONC 30.5 g/dl (32.0-37.0); MEAN CORPUSCULAR VOLUME 98.7 fl (82.0-101.0); MEAN PLATELET VOLUME 13.3 fl (7.4-10.4); PLATELET COUNT 47 10^3/UL (140-415); POSITIVE DIFF @See below; RED BLOOD COUNT 3.76 10^6/ul (4.70-6.10); RED CELL DISTRIBUTION WIDTH 15.8 % (11.5-14.5)
[2018-03-16 06:21] LABS: ADD MAN DIFF? YES
[2018-03-16 07:23] LABS: ANISOCYTOSIS 1+ (0-0); BAND NEUTROPHILS % (M) 12 % (0-4); BASOPHIL #M 0.2 10^3/ul (0.0-0.0); BASOPHILS % (M) 1 % (0-2); GIANT THROMBO% (M) 1 % (0-0); LYMPHOCYTES #M 1.5 10^3/ul (0.8-2.9); LYMPHOCYTES % (M) 6 % (15-51); MONOCYTE #M 0.5 10^3/ul (0.3-0.9); MONOCYTES % (M) 2 % (0-11); MYELOCYTES #M 0.5 10^3/ul (0.0-0.0); MYELOCYTES % (M) 2 % (0-0); PLATELET ESTIMATE SIG DECREASED; PLATELET MORPHOLOGY COMMENT @See below; POIKILOCYTOSIS 1+ (0-0); POLYCHROMASIA 1+ (0-0); SEG NEUT #M 20.6 10^3/ul (1.6-7.5); SEGMENTED NEUTROPHILS (M) % 77 % (39-77); SMUDGE%M 25 % (0-0)
[2018-03-16 07:44] LABS: ANION GAP 9 (5-13); BLOOD UREA NITROGEN 49 mg/dl (7-20); CALCIUM 8.3 mg/dl (8.4-10.2); CARBON DIOXIDE 35 mmol/L (21-31); CHLORIDE 106 mmol/L (97-110); CREATININE 0.92 mg/dl (0.61-1.24); GLUCOSE 114 mg/dl (70-220); POTASSIUM 3.5 mmol/L (3.5-5.1); SODIUM 150 mmol/L (135-144)
[2018-03-16] MEDS: LEVETIRACETAM 500 MG (PMX) 100 ML IVPB ×2 (08:40→20:05)
[2018-03-16] MEDS: BALSAM PERU/CASTOR OIL 60 GM TUBE TOP ×2 (08:42→19:29)
[2018-03-16] MEDS: ARTIFICIAL TEARS 15 ML OPH BOTH EYES ×4 (08:42→19:29)
[2018-03-16] MEDS: D5W + KCL 20 MEQ 1,000 ML IV (08:45)
[2018-03-16 13:37] LABS: PROCALCITONIN 0.65 ng/mL (<0.10)
[2018-03-16] MEDS: POTASSIUM CHLORIDE 20 MEQ POWDER FOR ORAL SOLN NGT (16:53)
[2018-03-16] MEDS: LEVOFLOXACIN 500MG/D5W (PMX) 100 ML IVPB (16:56)
[2018-03-16] MEDS: DOXYCYCLINE 100 MG in SOD CHLORIDE 0.9% 250 ML IVPB ×2 (19:29→19:44)
[2018-03-16] MEDS ORDERED: DOXYCYCLINE 100 MG in SOD CHLORIDE 0.9% 250 ML IVPB (21:00)
[2018-03-17] MEDS: IPRATROPIUM (NEB) 0.5 MG/2.5 ML AMP HHN ×4 (01:24→21:11)
[2018-03-17] MEDS: LEVALBUTEROL (NEB) 0.63 MG/3 ML AMP HHN ×4 (01:24→21:11)
[2018-03-17] MEDS: D5W + KCL 20 MEQ 1,000 ML IV ×2 (01:30→17:13)
[2018-03-17] MEDS: LANSOPRAZOLE 30 MG CAP GTB (05:40)
[2018-03-17] MEDS: BUMETANIDE 1 MG INJ IV ×2 (05:40→17:16)
[2018-03-17 06:02] LABS: ADD MAN DIFF? NO
[2018-03-17 06:07] LABS: WHITE BLOOD COUNT 21.3 10^3/ul (4.8-10.8)
[2018-03-17 06:07] LABS: ABNORMAL IP MESSAGE 1; BASOPHILS % 0.1 % (0.0-2.0); EOSINOPHILS # 0.2 10^3/ul (0.0-0.5); EOSINOPHILS % 0.8 % (0.0-7.0); HEMATOCRIT 28.9 % (42.0-52.0); HEMOGLOBIN 8.8 g/dl (14.0-18.0); LYMPHOCYTES # 1.5 10^3/ul (0.8-2.9); LYMPHOCYTES % 7.1 % (15.0-51.0); MEAN CORPUSCULAR HEMOGLOBIN 30.2 pg (29.0-33.0); MEAN CORPUSCULAR HGB CONC 30.4 g/dl (32.0-37.0); MEAN CORPUSCULAR VOLUME 99.3 fl (82.0-101.0); MEAN PLATELET VOLUME 12.8 fl (7.4-10.4); MONOCYTE # 0.5 10^3/ul (0.3-0.9); MONOCYTES % 2.4 % (0.0-11.0); NEUTROPHIL # 18.8 10^3/ul (1.6-7.5); NEUTROPHILS % 88.1 % (39.0-77.0); PLATELET COUNT 53 10^3/UL (140-415); POSITIVE DIFF @See below; RED BLOOD COUNT 2.91 10^6/ul (4.70-6.10); RED CELL DISTRIBUTION WIDTH 15.5 % (11.5-14.5)
[2018-03-17 07:05] LABS: ANION GAP 7 (5-13); BLOOD UREA NITROGEN 43 mg/dl (7-20); CALCIUM 7.9 mg/dl (8.4-10.2); CARBON DIOXIDE 34 mmol/L (21-31); CHLORIDE 105 mmol/L (97-110); CREATININE 0.82 mg/dl (0.61-1.24); GLUCOSE 118 mg/dl (70-220); SODIUM 146 mmol/L (135-144)
[2018-03-17] MEDS: DOXYCYCLINE 100 MG in SOD CHLORIDE 0.9% 250 ML IVPB ×3 (08:07→20:55)
[2018-03-17] MEDS: LEVETIRACETAM 500 MG (PMX) 100 ML IVPB ×2 (08:10→20:10)
[2018-03-17] MEDS: ARTIFICIAL TEARS 15 ML OPH BOTH EYES ×4 (08:11→20:10)
[2018-03-17] MEDS: BALSAM PERU/CASTOR OIL 60 GM TUBE TOP ×2 (08:11→20:10)
[2018-03-17] MEDS ORDERED: VITAMIN A & D 5 GM OINT PACKET TOP (12:48)
[2018-03-17] MEDS: ACETAMINOPHEN 650MG/20.3ML CUP NGT ×2 (17:16→20:09)
[2018-03-18] MEDS: IPRATROPIUM (NEB) 0.5 MG/2.5 ML AMP HHN ×3 (01:01→14:00)
[2018-03-18] MEDS: LEVALBUTEROL (NEB) 0.63 MG/3 ML AMP HHN ×3 (01:01→14:00)
[2018-03-18 05:33] LABS: ADD MAN DIFF? NO
[2018-03-18 05:42] LABS: ABNORMAL IP MESSAGE 1; BASOPHILS % 0.2 % (0.0-2.0); EOSINOPHILS # 0.2 10^3/ul (0.0-0.5); EOSINOPHILS % 0.7 % (0.0-7.0); HEMATOCRIT 30.1 % (42.0-52.0); HEMOGLOBIN 9.2 g/dl (14.0-18.0); LYMPHOCYTES % 8.4 % (15.0-51.0); MEAN CORPUSCULAR HEMOGLOBIN 30.5 pg (29.0-33.0); MEAN CORPUSCULAR HGB CONC 30.6 g/dl (32.0-37.0); MEAN CORPUSCULAR VOLUME 99.7 fl (82.0-101.0); MEAN PLATELET VOLUME 12.2 fl (7.4-10.4); MONOCYTE # 0.6 10^3/ul (0.3-0.9); MONOCYTES % 2.4 % (0.0-11.0); NEUTROPHIL # 20.2 10^3/ul (1.6-7.5); NEUTROPHILS % 85.8 % (39.0-77.0); PLATELET COUNT 64 10^3/UL (140-415); POSITIVE DIFF @See below; RED BLOOD COUNT 3.02 10^6/ul (4.70-6.10); RED CELL DISTRIBUTION WIDTH 15.2 % (11.5-14.5)
[2018-03-18 05:42] LABS: WHITE BLOOD COUNT 23.5 10^3/ul (4.8-10.8)
[2018-03-18] MEDS: LANSOPRAZOLE 30 MG CAP GTB (05:47)
[2018-03-18] MEDS: BUMETANIDE 1 MG INJ IV (05:47)
[2018-03-18 06:31] LABS: ANION GAP 5 (5-13); BLOOD UREA NITROGEN 39 mg/dl (7-20); CARBON DIOXIDE 33 mmol/L (21-31); CHLORIDE 102 mmol/L (97-110); CREATININE 0.68 mg/dl (0.61-1.24); GLUCOSE 115 mg/dl (70-220); POTASSIUM 3.9 mmol/L (3.5-5.1); SODIUM 140 mmol/L (135-144)
[2018-03-18] MEDS: ARTIFICIAL TEARS 15 ML OPH BOTH EYES ×3 (08:21→17:00)
[2018-03-18] MEDS: LEVETIRACETAM 500 MG (PMX) 100 ML IVPB (08:22)
[2018-03-18] MEDS: DOXYCYCLINE 100 MG in SOD CHLORIDE 0.9% 250 ML IVPB (08:43)
[2018-03-18] MEDS: BALSAM PERU/CASTOR OIL 60 GM TUBE TOP (08:45)
[2018-03-18] MEDS: D5W + KCL 20 MEQ 1,000 ML IV (10:28)
[2018-03-18] MEDS: ACETYLCYSTEINE 20% 4 ML VIAL NEB (14:00)
[2018-03-18] MEDS: LEVOFLOXACIN 500MG/D5W (PMX) 100 ML IVPB (15:00)
== END 2018-03-18 12:42 | disposition expired | DRG 853 ==
LOC: ICU 02-24 07:35 → 6WM 03-13 00:23 → E/R 14:10 → ICU 02-24 12:37 → TEL 17:54
PROVIDERS: Internal Medicine
PROC: 0DTF0ZZ Resection of Right Large Intestine, Open Approach (ICD-10-PCS; principal; 2018-02-24 08:33)
PROC: 06Q Lower Veins, Repair (ICD-10-PCS; 2018-02-24 08:33)
PROC: 04Q Lower Arteries, Repair (ICD-10-PCS; 2018-02-24 08:33)
PROC: 0D1B0Z4 Bypass Ileum to Cutaneous, Open Approach (ICD-10-PCS; 2018-02-24 08:33)
PROC: 30233N1 Transfusion of Nonautologous Red Blood Cells into Peripheral Vein, Percutaneous Approach (ICD-10-PCS; 2018-02-24 08:33)
PROC: 30233R1 Transfusion of Nonautologous Platelets into Peripheral Vein, Percutaneous Approach (ICD-10-PCS; 2018-02-24 08:33)
PROC: 5A1955Z Respiratory Ventilation, Greater than 96 Consecutive Hours (ICD-10-PCS; 2018-02-24 08:33)
PROC: 0W9G3ZZ Drainage of Peritoneal Cavity, Percutaneous Approach (ICD-10-PCS; 2018-02-24 08:33)
DX: A41.9 Sepsis, unspecified organism (principal); J18.9 Pneumonia, unspecified organism; R65.21 Severe sepsis with septic shock; G93.41 Metabolic encephalopathy; J96.00 Acute respiratory failure, unspecified whether with hypoxia or hypercapnia; I50.33 Acute on chronic diastolic (congestive) heart failure; C18.2 Malignant neoplasm of ascending colon; D62 Acute posthemorrhagic anemia; E87.0 Hyperosmolality and hypernatremia; F10.239 Alcohol dependence with withdrawal, unspecified; J98.11 Atelectasis; R18.8 Other ascites; I97.42 Intraoperative hemorrhage and hematoma of a circulatory system organ or structure complicating other procedure; I82.612 Acute embolism and thrombosis of superficial veins of left upper extremity; T17.590A Other foreign object in bronchus causing asphyxiation, initial encounter; D69.6 Thrombocytopenia, unspecified; E87.6 Hypokalemia; E83.39 Other disorders of phosphorus metabolism; E78.00 Pure hypercholesterolemia, unspecified; F03.90 Unspecified dementia, unspecified severity, without behavioral disturbance, psychotic disturbance, mood disturbance, and anxiety; I25.10 Atherosclerotic heart disease of native coronary artery without angina pectoris; I11.0 Hypertensive heart disease with heart failure; J44.9 Chronic obstructive pulmonary disease, unspecified; N40.0 Benign prostatic hyperplasia without lower urinary tract symptoms; R53.81 Other malaise; R13.10 Dysphagia, unspecified; R56.9 Unspecified convulsions; Y83.8 Other surgical procedures as the cause of abnormal reaction of the patient, or of later complication, without mention of misadventure at the time of the procedure; Z66 Do not resuscitate; Z86.73 Personal history of transient ischemic attack (TIA), and cerebral infarction without residual deficits
CPT/HCPCS: 36415; 36430; 36600; 70450; 70551; 71045; 74018; 74176; 74177; 76705; 77012; 78806; 80048; 80053; 80202; 81001; 82140; 82378; 82565; 82803; 82962; 83605; 83690; 83735; 84100; 84132; 84145; 84484; 84520; 85014; 85018; 85025; 85610; 85730; 86078; 86644; 86850; 86900; 86901; 86920; 86945; 87040; 87070; 87075; 87081; 87086; 88309; 89220; 90686; 92526; 92610; 93005; 93306; 93970; 94002; 94003; 94640; 94668; 94770; 95819; 96365; 96375; 96376; 97110; 97162; 97530; 99291-25